=== PATIENT | female | born 1950 | race Caucasian/White ===

== ENCOUNTER 2018-03-12 02:35 | Outpatient (CLI) | payer MEDICARE, SELFPAY ==
[2018-03-12 08:47] LABS: HCT 37.2 % (36.0-46.0); HGB 12.7 g/dL (12.0-15.5); Mean Corp. HGB Concentration 34.1 g/dL (32.0-36.0); Mean Corpuscular Hemoglobin 29.5 pg (27.0-33.0); Mean Corpuscular Volume 86.3 fL (80-95); Mean Platelet Volume 10.3 fL (8.0-11.0); Platelet Count 185 x1000/uL (130-400); RBC 4.31 m/cumm (4.00-5.20); RBC Distribution Width 12.7 % (11.7-14.6); White Blood Cell Count 4.39 k/cumm (4.4-10.8)
[2018-03-12 10:26] LABS: ALT 33 U/L (12-78); AST 14 U/L (15-37); Albumin 3.6 g/dL (3.4-5.0); Alkaline Phosphatase 77 U/L (46-116); Anion Gap 10.4 mmol/L (3-11); BUN 13 mg/dL (7-18); Bilirubin, Total 0.6 mg/dL (0.2-1.0); CO2 28.6 mmol/L (21.0-32.0); CREATININE 0.97 mg/dL (0.55-1.02); Calcium 8.6 mg/dL (8.5-10.1); Chloride 106 mmol/L (98-107); Cholesterol 212 mg/dL (50-200); Estimated GFR 57.64 (mL/min/1.73m2); Glucose 95 mg/dL (70-100); HDL Cholesterol 58 mg/dL (40-60); LDL CHOLESTEROL 129 mg/dL (<100); Potassium 3.9 mmol/L (3.5-5.1); Sodium 145 mmol/L (136-145); Total Protein 6.7 g/dL (6.4-8.2); Triglyceride 186 mg/dL (30-150)
== END 2018-03-12 02:55 ==
PROVIDERS: PCP Family Medicine; Visit Provider Family Medicine
DX: E78.5 Hyperlipidemia, unspecified (principal); I10 Essential (primary) hypertension
CPT/HCPCS: 36415; 80053; 80061; 83721; 85027

== ENCOUNTER 2018-08-05 00:55 | Outpatient (CLI) | payer MEDICARE, OTHER, SELFPAY ==
--- NOTE | 2018-08-05 07:39 | DI.MRI_ITS ---
SYMPTOM/DIAGNOSIS: TIA, LT SIDED WEAKNESS, R53.1, G45.9 MRI BRAIN: Routine noncontrast examination was performed. The ventricles and sulci are consistent with the patient's age. There are areas of hyperintense signal in the white matter on T2 and Flair images most suggestive of small vessel ischemic disease. The diffusion weighted images have a normal appearance, No evidence of an acute infarct are seen. No intracranial hemorrhage is present. The ventricles are intact. The basilar cisterns are patent. There is no acute midline shift or mass effect. There is a normal flow void seen in the [place]. The pituitary gland appears grossly unremarkable. The visualized paranasal sinuses are clear. IMPRESSION: No evidence of an acute infarct. Age appropriate cerebral atrophy and small vessel ischemic disease.
--- NOTE | 2018-08-05 14:30 | DI.MAMMO_ITS ---
SYMPTOM/DIAGNOSIS: SCREENING, Z12.31 MAMMOGRAMS: Mammograms were interpreted according to the usual protocol including computer analysis with CAD system, tomosynthesis and C view imaging. Comparison is made with prior examinations. Breast density, Category B. No suspicious masses or microcalcifications are seen. There is no definite evidence of malignancy. IMPRESSION: Negative mammogram. Routine screening is recommended. Category 1. MQSA ASSESSMENT OF FINDINGS: Negative. Category 1. Patient will receive a letter notifying them of these results. BI-RADS category B. There are scattered areas of fibroglandular density.
== END 2018-08-05 01:15 ==
PROVIDERS: PCP Family Medicine; Visit Provider Family Medicine
DX: Z12.31 Encounter for screening mammogram for malignant neoplasm of breast (principal); G31.1 Senile degeneration of brain, not elsewhere classified; I67.82 Cerebral ischemia; G45.9 Transient cerebral ischemic attack, unspecified
CPT/HCPCS: 77063; 77067; 70551

== ENCOUNTER 2018-08-06 03:03 | Outpatient (CLI) | payer MEDICARE, OTHER, SELFPAY ==
--- NOTE | 2018-08-26 07:35 | ZIOP_ITS ---
[employer] MA[employer]GER REPORT DATE OF DICTATION August 24, 2018 INDICATION Transient cerebral ischemic event. PRESCRIBING CLINICIAN Twyla Pittman M.D. ENROLLMENT 08/06/2018 - 08/19/2018 FINDINGS 1. Baseline sinus rhythm, 44-104 beats per minute, average 60 beats per minute. 2. Rare PAC, less than 1%, 11 atrial runs, fastest 8 beats at 164 beats per minute, longest 12 beats at 116 beats per minute, no AF. 3. No ventricular ectopy. 4. No pauses. 5. 3 triggered events, sinus rhythm/sinus bradycardia, 58-69 beats per minute, 1 PAC. 6. No symptoms recorded. Tl Peoples M.D. ANKUSH/feng CPT 0298T T - 08/26/2018
== END 2018-08-06 03:23 ==
PROVIDERS: PCP Family Medicine; Visit Provider Family Medicine
DX: G45.9 Transient cerebral ischemic attack, unspecified (principal); I49.1 Atrial premature depolarization
CPT/HCPCS: 93225

== ENCOUNTER 2018-08-22 00:46 | Outpatient (CLI) | payer MEDICARE, OTHER, SELFPAY ==
--- NOTE | 2018-08-22 13:02 | DI.US_ITS ---
SYMPTOMS/DIAGNOSIS: TRANSIENT TRANSIENT ISCHEMIC ATTACK, G45.9, LEFT-SIDED WEAKNESS, R53.1 CAROTID ULTRASOUND: There are small foci of calcification in the common carotid bulbs. The velocity measurements obtained are within the normal range bilaterally in the internal carotid arteries. The vertebral arteries show antegrade flow. IMPRESSION: Small foci of calcific plaque in the common carotid bulbs. No significant internal carotid artery stenosis.
== END 2018-08-22 01:06 ==
PROVIDERS: PCP Family Medicine; Visit Provider Family Medicine
DX: G45.9 Transient cerebral ischemic attack, unspecified (principal); R53.1 Weakness; I65.23 Occlusion and stenosis of bilateral carotid arteries
CPT/HCPCS: 93880

== ENCOUNTER 2018-08-24 21:27 | Outpatient (CLI) | payer MEDICARE, OTHER, SELFPAY | END 2018-08-24 21:47 | PROVIDERS: PCP Family Medicine; Referring Provider Family Medicine; Visit Provider Internal Medicine Cardiovascular Disease | DX: G45.9 Transient cerebral ischemic attack, unspecified (principal); I49.1 Atrial premature depolarization | CPT/HCPCS: 0298T ==

== ENCOUNTER 2019-03-18 02:20 | Outpatient (CLI) | payer MEDICARE, OTHER, SELFPAY ==
[2019-03-18 09:31] LABS: ALT 33 U/L (14-59); AST 14 U/L (15-37); Albumin 3.8 g/dL (3.4-5.0); Alkaline Phosphatase 76 U/L (46-116); Anion Gap 10.8 mmol/L (3-11); BUN 13 mg/dL (7-18); Bilirubin, Total 0.6 mg/dL (0.2-1.0); CO2 27.2 mmol/L (21.0-32.0); CREATININE 0.95 mg/dL (0.55-1.02); Calcium 8.9 mg/dL (8.5-10.1); Calculated LDL 103 mg/dL; Chloride 105 mmol/L (98-107); Cholesterol 190 mg/dL (50-200); Estimated GFR 58.85 (mL/min/1.73m2); Glucose 94 mg/dL (70-100); HDL Cholesterol 60 mg/dL (40-60); Potassium 3.9 mmol/L (3.5-5.1); Sodium 143 mmol/L (136-145); Total Protein 6.9 g/dL (6.4-8.2); Triglyceride 138 mg/dL (30-150)
== END 2019-03-18 02:40 ==
PROVIDERS: PCP Family Medicine; Visit Provider Family Medicine
DX: I10 Essential (primary) hypertension (principal)
CPT/HCPCS: 36415; 80053; 80061

== ENCOUNTER 2019-08-06 01:19 | Outpatient (CLI) | payer MEDICARE, OTHER, SELFPAY ==
--- NOTE | 2019-08-06 10:43 | DI.MAMMO_ITS ---
EXAM: MAMMO SCREENING CLINICAL HISTORY: screening Z12.31. TECHNIQUE: Full field digital CC and MLO mammographic images were obtained with 3D tomosynthesis and utilizing computer aided detection (CAD). COMPARISON: . 2009 through 2018. FINDINGS: Breast Density - Category B - Scattered areas of fibroglandular density Left breast: Masses/Architectural Distortion: None seen. Microcalcifications: No suspicious pleomorphic-type calcifications are seen. Skin Thickening/Nipple Retraction: None. Axilla: Unremarkable. Right breast: A new area of nodular is seen the posterior central right breast. Spot compression vie ws and ultrasound are requested for further evaluation. No suspicious calcifications are seen. IMPRESSION: 1. Left breast: BI-RADS category 1, negative. No significant interval change with no specific featur es of malignancy noted. 2. Right breast: BI-RADS Cat 0 - Assessment Incomplete: Need additional imaging evaluation A negative radiographic report should not delay biopsy if a dominant or clinically suspicious mass is present. Up to ten percent of cancers are not identified on mammography. A negative report may reinforce clinical impression. Adenosis and dense breasts may obscure an underlying neoplasm. False positive reports average 6 to 10%. Patient will receive a letter notifying them of these results.
== END 2019-08-06 01:39 ==
PROVIDERS: PCP Family Medicine; Visit Provider Family Medicine
DX: Z12.31 Encounter for screening mammogram for malignant neoplasm of breast (principal); R92.8 Other abnormal and inconclusive findings on diagnostic imaging of breast
CPT/HCPCS: 77063; 77067

== ENCOUNTER 2019-10-09 00:59 | Outpatient (CLI) | payer MEDICARE, OTHER, SELFPAY ==
--- NOTE | 2019-10-09 | DI.MAMMO_ITS ---
EXAM: US BREAST RT LIMITED AND RIGHT BREAST ADDITIONAL VIEWS CLINICAL HISTORY: F/U MAMMO, NEW AREA RT BREAST NODULARITY TECHNIQUE: Spot compression views with tomography and CC and MLO projections. Ultrasound right janae st performed using standard protocol. COMPARISON: 2009 through 2019 FINDINGS: Additional views of the right breast: No persistent abnormality is identified. The findings are cons istent with overlying fibroglandular tissue. There has been no change when compared with exams back to 2010. Right breast ultrasound: No solid or cystic masses, hypoechoic foci, areas of abnormal shadowing, or areas of skin thickening. IMPRESSION: No mammographic or sonographically suspicious findings. ACR BI-RAD Category- 1 Negative. Bilateral screening mammography is recommended in 1 year. Breast Density - Category B - Scattered areas of fibroglandular density DATA REPOSITORY:
== END 2019-10-09 01:19 ==
PROVIDERS: PCP Family Medicine; Visit Provider Family Medicine
DX: Z12.31 Encounter for screening mammogram for malignant neoplasm of breast (principal); R92.8 Other abnormal and inconclusive findings on diagnostic imaging of breast; N64.59 Other signs and symptoms in breast
CPT/HCPCS: 76642; 77063; 77067

== ENCOUNTER 2020-03-17 02:47 | Outpatient (CLI) | payer MEDICARE, OTHER, SELFPAY ==
[2020-03-17 08:13] LABS: HCT 38.3 % (36.0-46.0); HGB 12.6 g/dL (11.2-15.7); MCH 28.6 pg (27.0-33.0); MCHC 32.9 % (32.0-36.0); MCV 86.8 fL (80-95); MPV 10.1 fL (8.0-11.0); Platelet Count 204 10^3/uL (130-400); RBC 4.41 10^6/uL (3.93-5.22); RDW 12.5 % (11.7-14.6); RDW-SD 39.7 fL; WBC 3.95 10^3/uL (4.4-10.8)
[2020-03-17 08:42] LABS: ALT 23 U/L (14-59); AST 18 U/L (15-37); Albumin 3.8 g/dL (3.4-5.0); Alkaline Phosphatase 73 U/L (46-116); Anion Gap 7.4 mmol/L (3-11); BUN 18 mg/dL (7-18); Bilirubin, Total 0.7 mg/dL (0.2-1.0); CO2 29.6 mmol/L (21.0-32.0); CREATININE 0.89 mg/dL (0.55-1.02); Calcium 8.9 mg/dL (8.5-10.1); Calculated LDL 96 mg/dL (<100); Chloride 105 mmol/L (98-107); Cholesterol 180 mg/dL (<200); Glucose 99 mg/dL (74-106); HDL Cholesterol 64 mg/dL (40-60); Potassium 3.9 mmol/L (3.5-5.1); Sodium 142 mmol/L (136-145); Total Protein 6.7 g/dL (6.4-8.2); Triglyceride 100 mg/dL (<150)
== END 2020-03-17 03:07 ==
PROVIDERS: PCP Family Medicine; Visit Provider Family Medicine
DX: E78.5 Hyperlipidemia, unspecified (principal); I10 Essential (primary) hypertension
CPT/HCPCS: 36415; 80053; 80061; 85027

== ENCOUNTER 2020-11-03 02:14 | Outpatient (CLI) | payer MEDICARE, OTHER, SELFPAY ==
--- NOTE | 2020-11-03 13:10 | DI.MAMMO_ITS ---
Exam(s) MAMMO SCREENING EXAM: MAMMO SCREENING CLINICAL HISTORY: screening,Z12.39. TECHNIQUE: Bilateral full field digital CC and MLO mammographic images were obtained with 3D tomosyn thesis and utilizing computer aided detection (CAD). COMPARISON: Prior mammograms dating back to 2010, the most recent being July 2019 . Diagnostic mammogram and ultrasound performed September 2019 were also reviewed. FINDINGS: Small nodular denser in the upper-outer quadrant left breast is unchanged from all prior studies and most probably a benign lymph node Asymmetric density medially in left breast is also unchanged from prior studies. In the right breast on CC view there is again noted a subtle nodular density located approximately 9 cm in from the nipple, again more evident on prior studies. This underwent spot-compression view and and prior ultrasound in September 2019. I feel this area should undergo repeat dedicated imaging. Ther e are no malignant-appearing microcalcification groups in this region or elsewhere in either breast There is no significant architectural distortion nor skin thickening-retraction. IMPRESSION: 1. No radiographic evidence of malignancy in left breast 2. Right breast finding asymmetric density-possible nodule as described above. Spot compression view and complete right breast ultrasound recommended. BI-RADS Category 0 - Assessment Incomplete: Need additional imaging evaluation Breast Density - Category B - Scattered areas of fibroglandular density Breast density Category C or D implies that the patient has dense breast tissue. Dense breast tissue can make it harder to find cancer on a mammogram. Dense breast tissue is also associated with an incr eased risk of breast cancer. This information about the result of the mammogram report was provided to the patient to raise their awareness. Use this report when you speak with the patient about their risks for breast cancer, which includes their family history. At that time, you may recommend additional screening tests (Ultrasoun d or MRI) as these tests may add significant information. A negative radiographic report should not delay biopsy if a dominant or clinically suspicious mass is present. Up to ten percent of cancers are not identified on mammography. A negative report may reinforce clinical impression. Adenosis and dense breasts may obscure an underlying neoplasm. False positive reports average 6 to 10%. Patient will receive a letter notifying them of these results.
--- NOTE | 2020-11-03 13:36 | DI.DEXA_ITS ---
Exam(s) XR DEXA BONE DENSITY W/WO MINAL EXAM: XR DEXA BONE DENSITY W/WO MINAL CLINICAL HISTORY: SCREENING FOR OSTEOPOROSIS IN POSTMENOPAUSAL WOMAN,Z78.0 TECHNIQUE: Routine DEXA evaluation of the lumbar spine, hip, or forearm. COMPARISON: No exams were available for comparison FINDINGS: Performed on a Hologic unit. Lateral image: No compression fracture evident. Lumbar Spine total T-score: 1.7 Hip total T-score:-0.4. Independent reading at the femoral neck yields a T-score of -0.7 Forearm total T-score: -0.3 IMPRESSION: Bone mineral density measures in the normal range. Fracture risk is low. Note: Any spine fracture indicates 5x risk for subsequent spine fracture and 2x risk for subsequent h ip fracture. World Health Organization criteria for BMD interpretation classify patients: Normal...... T- Score at or above -1.0 Osteopenic... T- Score between -1.0 and -2.5 Osteoporosis... T-Score at or below -2.5
== END 2020-11-03 02:34 ==
PROVIDERS: PCP Family Medicine; Visit Provider Physician Assistant
DX: Z12.31 Encounter for screening mammogram for malignant neoplasm of breast (principal); R92.8 Other abnormal and inconclusive findings on diagnostic imaging of breast; Z13.820 Encounter for screening for osteoporosis; Z78.0 Asymptomatic menopausal state
CPT/HCPCS: 77063; 77067; 77080

== ENCOUNTER 2020-11-16 02:18 | Outpatient (CLI) | payer MEDICARE, OTHER, SELFPAY ==
--- NOTE | 2020-11-16 | DI.US_ITS ---
Exam(s) MG MAMMO SCREEN CALL BACK UNI US BREAST RT COMPLETE EXAM: US BREAST RT COMPLETE CLINICAL HISTORY: FU MAMMO ASYMMETRIC DENSITY POSSIBLE NODULE. TECHNIQUE: Craniocaudal and mediolateral oblique Full Field Digital Mammography views of the breast with Computer Aided Diagnosis followed by Tomosynthesis and breast ultrasound. COMPARISON: MG Screening Bilat Mammo from 06/01/2015 MG Screening Bilat Mammo from 07/04/2016 MG Screening Bilat Mammo from 07/04/2016 MG MG mammo screening from 08/05/2018 MG MG MAMMO SCREEN CALL BACK UNI from 10/09/2019 MG MG MAMMO SCREEN CALL BACK UNI from 10/09/2019 MG MG MAMMO SCREENING from 11/03/2020 FINDINGS: Mammography/Tomosynthesis: Masses/Architectural Distortion: None seen. Microcalcifictions: No suspicious pleomorphic-type are seen. Skin Thickening/Nipple Retraction: None. Breast US: Echotexture: Normal appearance of the glandular tissue. Shadowing: No suspicious foci. Cyst: None. Solid lesions: None seen. Ductal dilation: None. IMPRESSION: 1. No evidence of malignancy is noted. 2. Unless there is more urgent need, follow-up screening mammography is recommended, as per [place] [employer] guidelines. BI-RADS Category 1 - Negative Breast Density - Category B - Scattered areas of fibroglandular density A negative radiographic report should not delay biopsy if a dominant or clinically suspicious mass is present. Up to ten percent of cancers are not identified on mammography. A negative report may reinforce clinical impression. Adenosis and dense breasts may obscure an underlying neoplasm. False positive reports average 6 to 10%. Patient will receive a letter notifying them of these results.
== END 2020-11-16 02:38 ==
PROVIDERS: PCP Nurse Practitioner Family; Visit Provider Physician Assistant
DX: Z12.31 Encounter for screening mammogram for malignant neoplasm of breast (principal); R92.8 Other abnormal and inconclusive findings on diagnostic imaging of breast; N64.59 Other signs and symptoms in breast
CPT/HCPCS: 76642; 77063; 77067

== ENCOUNTER 2022-04-27 03:09 | Outpatient (CLI) | payer MEDICARE, SELFPAY ==
[2022-04-27 12:37] LABS: CREATININE 0.9 mg/dL (0.55-1.02); Calculated LDL 173 mg/dL (<100); Cholesterol 276 mg/dL (<200); HDL Cholesterol 71 mg/dL (40-60); Potassium 3.6 mmol/L (3.5-5.1); Triglyceride 164 mg/dL (<150)
== END 2022-04-27 03:10 | disposition home or self-care (01) ==
LOC: LOS 03:09
PROVIDERS: PCP Nurse Practitioner Family; Visit Provider Nurse Practitioner Family
DX: E78.5 Hyperlipidemia, unspecified (principal); I10 Essential (primary) hypertension
CPT/HCPCS: 80061; 82565; 84132

== ENCOUNTER 2022-07-26 12:14 | Outpatient (CLI) | payer MEDICARE, SELFPAY ==
--- NOTE | 2022-07-26 11:15 | DI.RAD_ITS ---
Exam(s) XR HAND LT COMPLETE EXAM: XR HAND LT COMPLETE CLINICAL HISTORY: swollen/painful after heavy lifting with it. M79.642 PAIN LEFT HAND. TECHNIQUE: 2D digital imaging was performed. Three views. COMPARISON: No exams were available for comparison FINDINGS: BONES: No acute fracture is present. No bony destructive lesion is seen. JOINTS: No dislocation present. Degenerative changes are noted at the 1st carpal metacarpal joint wit h joint space narrowing and prominent spurring. Degenerative changes are also noted in the interphal angeal joints of the fingers. SOFT TISSUE: Normal. IMPRESSION: Degenerative changes. No acute abnormality. DATA REPOSITORY: RADIATION DOSE DELIVERED:
== END 2022-07-26 12:34 ==
PROVIDERS: PCP Nurse Practitioner Family; Visit Provider Nurse Practitioner Family
DX: M79.642 Pain in left hand (principal); M79.89 Other specified soft tissue disorders; M18.12 Unilateral primary osteoarthritis of first carpometacarpal joint, left hand; M19.042 Primary osteoarthritis, left hand
CPT/HCPCS: 73130

== ENCOUNTER 2022-12-06 02:48 | Outpatient (CLI) | payer MEDICARE, SELFPAY ==
--- NOTE | 2022-12-06 07:15 | DI.MAMMO_ITS ---
Exam(s) MAMMO SCREENING EXAM: MAMMO SCREENING CLINICAL HISTORY: SCREENING, Z12.39. TECHNIQUE: Bilateral full field digital CC and MLO mammographic images were obtained with 3D tomosyn thesis and utilizing computer aided detection (CAD). COMPARISON: Prior mammograms dating back to 2013 were reviewed. FINDINGS: In the left breast there is an 8 x 8 mm nodule seen medial of center, located approximately 8 cm in n ipple on the CC view. Spot compression view and ultrasound recommended. Another smaller benign-appear ing nodule seen laterally in left breast is unchanged from all prior mammograms. In the right breast there is again noted a subtle asymmetric density-possible nodule measuring 6 x 6 mm, located 9 cm in from the nipple on the CC view, slightly lateral of center. Spot compression view and ultrasound recommended. In addition in the right breast on the MLO view there is a suggestion of a possible 1.8 x 1.7 cm nodu lar density located 6 cm in from the nipple on the MLO view There are no malignant-appearing microcalcification groups in either breast. There is no significant architectural distortion nor skin thickening-retraction. IMPRESSION: Bilateral nodular densities as described above. Spot compression views of both breasts as well as lamont ateral complete breast ultrasound recommended. BI-RADS Category 0 - Assessment Incomplete: Need additional imaging evaluation Breast Density - Category C - Heterogeneously dense Breast density Category C or D implies that the patient has dense breast tissue. Dense breast tissue can make it harder to find cancer on a mammogram. Dense breast tissue is also associated with an incr eased risk of breast cancer. This information about the result of the mammogram report was provided to the patient to raise their awareness. Use this report when you speak with the patient about their risks for breast cancer, which includes their family history. At that time, you may recommend additional screening tests (Ultrasoun d or MRI) as these tests may add significant information. A negative radiographic report should not delay biopsy if a dominant or clinically suspicious mass is present. Up to ten percent of cancers are not identified on mammography. A negative report may reinforce clinical impression. Adenosis and dense breasts may obscure an underlying neoplasm. False positive reports average 6 to 10%. Patient will receive a letter notifying them of these results.
== END 2022-12-06 03:08 ==
LOC: DI 02:48
PROVIDERS: PCP Nurse Practitioner Family; Visit Provider Nurse Practitioner Family
DX: Z12.31 Encounter for screening mammogram for malignant neoplasm of breast (principal); R92.8 Other abnormal and inconclusive findings on diagnostic imaging of breast
CPT/HCPCS: 77063; 77067

== ENCOUNTER 2022-12-06 03:40 | Outpatient (CLI) | payer MEDICARE, SELFPAY ==
[2022-12-06 12:56] LABS: Calculated LDL 159 mg/dL (<100); Cholesterol 249 mg/dL (<200); HDL Cholesterol 64 mg/dL (40-60); Triglyceride 134 mg/dL (<150)
== END 2022-12-06 03:41 | disposition home or self-care (01) ==
LOC: LOS 03:40
PROVIDERS: PCP Nurse Practitioner Family; Visit Provider Nurse Practitioner Family
DX: E78.5 Hyperlipidemia, unspecified (principal)
CPT/HCPCS: 36415; 80061

== ENCOUNTER 2022-12-14 01:30 | Outpatient (CLI) | payer MEDICARE, SELFPAY ==
--- NOTE | 2022-12-14 | DI.MAMMO_ITS ---
Exam(s) US BREAST RT COMPLETE MG MAMMO SCREEN CALL BACK BI EXAM: MG MAMMO SCREEN CALL BACK BI CLINICAL HISTORY: BILAT NODULAR DENSITIES R92.8 ABNL MAMMO. TECHNIQUE: Spot compression digital Mammography views of the bothbreasts with Tomosynthesis followe d by bilateral breast ultrasound. COMPARISON: US US BREAST RT COMPLETE from 12/14/2022 FINDINGS: RIGHT BREAST: Mammography/Tomosynthesis: Masses/Architectural Distortion: Area of increased and masslike density in the lateral breast measuri ng roughly 15 by 22 by 16 millimeters. There is suggestion of spiculation is well as architectural d istortion. A posterior area of asymmetric density seen on the CC view does not have a suspicious brock earance. Microcalcifictions: No suspicious pleomorphic-type are seen. Skin Thickening/Nipple Retraction: None. Right breast US: Shadowing: No suspicious foci. Cyst: None. Solid lesions: 2.3 x 1.3 x 1.6 centimeter solid mildly hypoechoic mass in the 9 o'clock position 4 cm from the nipple which shows vascularity. No additional masses identified. Ductal dilation: None. A 1.8 centimeter right axillary lymph node is identified which has a normal appearance. LEFT BREAST: Mammography/Tomosynthesis: Masses/Architectural Distortion: Area of nodularity in the medial left breast has been seen on prior mammograms back to 2012. Microcalcifictions: No suspicious pleomorphic-type are seen. Skin Thickening/Nipple Retraction: None. IMPRESSION: 1. Right breast: Suspicious 2.3 cm mass in the lateral right breast. Biopsy recommended. 2. Left breast: No evidence of malignancy is noted. 3. The findings were discussed with the patient on the date of the examination. 4. Findings discussed with Raul Zhou, referring provider. BI-RADS Category 5 - Highly Suggestive of Malignancy: Biopsy recommended Breast Density - Category B - Scattered areas of fibroglandular density A negative radiographic report should not delay biopsy if a dominant or clinically suspicious mass is present. Up to ten percent of cancers are not identified on mammography. A negative report may reinforce clinical impression. Adenosis and dense breasts may obscure an underlying neoplasm. False positive reports average 6 to 10%. Patient will receive a letter notifying them of these results.
== END 2022-12-14 01:50 ==
LOC: DI 01:31
PROVIDERS: PCP Nurse Practitioner Family; Visit Provider Nurse Practitioner Family
DX: Z12.31 Encounter for screening mammogram for malignant neoplasm of breast (principal); N63.13 Unspecified lump in the right breast, lower outer quadrant
CPT/HCPCS: 76642; 77063; 77067

== ENCOUNTER 2022-12-27 01:45 | Outpatient (CLI) | payer MEDICARE, SELFPAY ==
--- NOTE | 2022-12-27 12:45 | DI.US_ITS ---
Exam(s) US NEEDLE LOCAL BREAST WO RAD EXAM: US NEEDLE LOCAL BREAST WO RAD CLINICAL HISTORY: RT BREAST MASS TECHNIQUE: Ultrasound was provided for Dr. Reagan for guidance with performing breast biopsy. COMPARISON: US US BREAST RT COMPLETE from 12/14/2022 MG MG MAMMO SCREEN CALL BACK BI from 12/14/2022 FINDINGS: Hard copy images show the previously noted right breast mass in the 10 o'clock position. Further reba ges show a needle entering the mass. Please see procedure note for details. DATA REPOSITORY:
--- NOTE | 2022-12-27 13:08 | BREAST_PTH ---
PATIENT: Jane Moreland LOC: [facility] U#:[id number] AGE/SX: 72/F ROOM: RE12/27/[address]: Carmen Reagan MD : [id number] BED: DIS: 12/27/2022 SPEC #: [id number] RECD: 12/28/22 12:39 STATUS: GRANT REQ #: [id number] JIMMY: 12/27/22 13:[address]: Carmen Reagan DEPT: Surgical Specimen RECD BY: Alyse Nunez ENTERED: 12/28/22 12:40 SP TYPE: Breast OTHR DR: Raul Zhou, LESIA Tissues: 1 - BREAST BX NEEDLE Procedures: GROSS AND MICRO LEVEL 4 [id number] IPEX ESTROGEN/PROGESTERONE RECEPTOR IPEX STAIN Comments: [id number]
--- NOTE | 2022-12-28 10:45 | W.PROCNOTE ---
Date of service: 12/27/22 Time of Service: 13:00 Procedure Note Date of procedure: 12/27/22 Procedure: US guided Breast Biopsy Right Breast Surgeon/Proceduralist/Physician: Carmen Reagan Procedure Diagnosis: Right Breast mass, Family Hx of Breast Cancer Procedure Indications: I saw Mrs Moreland in the radiology department prior to her ultrasound-guided biopsy. She is a very pleasant 72-year-old female who went for her routine mammogram and was found to have an abnormality. Ultrasound was done on the same day which showed a suspicious mass in her right breast at around the 10 o'clock position 3 cm from the nipple. She does not feel a mass. She has not noted any nipple discharge or changes in the skin of her breast. She does have a family history of breast cancer in her sister who just from a second bout of breast cancer. She does not think that her sister was ever tested for a genetic marker. The patient has 2 sons and a daughter. I explained the procedure to the patient in detail. We reviewed the risks, benefits and complications. Complications include but are not limited to bleeding, infection, injury to muscle. There is risk of missing or not getting enough tissue for diagnosis and needing to repeat the procedure. I answered her questions to her satisfaction. She seemed to have a good understanding of the procedure as well as the complications and wished to proceed. Procedure Description: Pre-op Dx: Right Breast Mass Post-op Dx: same Procedure: US guided Right Breast Core needle biopsy Surgeon: Joanie Reagan MD Anesthesia: Local anesthesia with 1% Lidocaine Blood loss: 2 cc Specimen: Core needle biopsy x3 Complications: no immediate complications Procedure: After informed consent was obtained the patient was placed in a supine position. US was done of the Breast and the lesion was localized by the US tech. The skin was cleaned with chlorhexedine and infiltrated with the above local anesthetic. An incision was made with an 11 blade. Using a 14 gauge core needle 3 specimens were removed under direct visualization with the US and placed on telfa and placed in formalin. A small clip was then placed into the lesion under direct visualization with the US. The skin was cleaned and dried and a band aid was applied. A cold pack was placed over the area. The patient tolerated the procedure well and there were no immediate complications.
== END 2022-12-27 02:05 ==
LOC: DI 01:46
PROVIDERS: PCP Nurse Practitioner Family; Visit Provider Surgery
DX: C50.411 Malignant neoplasm of upper-outer quadrant of right female breast
CPT/HCPCS: 88305; 88360; 76942

== ENCOUNTER → 2023-01-16 13:18 | Outpatient (BNVA) | payer MEDICARE, SELFPAY | PROVIDERS: PCP Nurse Practitioner Family; Referring Provider Nurse Practitioner Family; Visit Provider Surgery | DX: C50.911 Malignant neoplasm of unspecified site of right female breast (principal) | CPT/HCPCS: 99213 ==

== ENCOUNTER 2023-01-24 06:32 | Day surgery (SDC) | payer MEDICARE, SELFPAY ==
[2023-01-24] VITALS (17 sets, daily range): BP systolic 114–186; BP diastolic 47–84; PULSE 47–64; RESP 12–20; TEMP 36.1–36.8; O2SAT 94–99; BMI 30.4
--- NOTE | 2023-01-24 | DI.US_ITS ---
Exam(s) US NEEDLE LOCAL BREAST WO RAD EXAM: US NEEDLE LOCAL BREAST WO RAD CLINICAL HISTORY: Breast mass- needle loc in OR. Right Breast. Left Breast. TECHNIQUE: Ultrasound guidance was provided for preoperative localization wire into the nodule lenny rn at 10 o'clock position of the right breast. This procedure was performed by the breast surgeon. Radiologist was not present for this procedure. COMPARISON: US US NEEDLE LOCAL BREAST WO RAD from 12/27/2022 FINDINGS: Preop needle wire localization of right breast 10 o'clock position nodule. IMPRESSION: As above.
--- NOTE | 2023-01-24 07:00 | DI.NM_ITS ---
Exam(s) NM SENTNODE INJ ONLY EXAM: NM SENTNODE INJ ONLY CLINICAL HISTORY: Right Breast Cancer, invasive ductal carcinoma rt breast, C50.911. TECHNIQUE: Injected Dose: 1 mCi Tc-99m filtered sulfur colloid injected subcutaneously in the right breast by Dr. Reagan Images: No images. COMPARISON: MG MG MAMMO SPECIMEN from 01/24/2023 FINDINGS: Please see procedure note for details. DATA REPOSITORY:
--- NOTE | 2023-01-24 07:14 | PGE_ITS ---
Date of Service Date of service: 01/24/23 Time of Service: 07:14 Assessment and Plan Assessment and plan (1) Invasive ductal carcinoma of right breast in female: Status: Acute Assessment and plan: After discussing her options she would like to proceed with a partial mastectomy on the right with sentinel lymph node biopsy.? Risks, benefits and complications were reviewed with the patient.? Complications include but are not limited to bleeding, seroma, hematoma, wound dehiscence, infection, injury to nerves in the axilla, lymphedema, need for further surgery if margins are close or positive.? Patient seemed to have a good understanding of the procedure and its complications.? Her questions were entertained and answered to her satisfaction and she wished to proceed.? No guarantees were given or implied. Proceed with ultrasound localized right breast lumpectomy with sentinel lymph node biopsy. Subjective Subjective Interval history since last seen: From H&P: Jane is here to discuss her pathology results from the breast biopsy that I did as well as surgery.? Jane underwent a mammogram which showed a suspicious lesion.? 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 It is estrogen progesterone positive and HER2/kanika negative.? I reviewed the pathology result with Jane today.? We reviewed the different types of cancers as well as the different surgical procedures.? She had minimal bruising after the biopsy.? She does have a family history of breast cancer in her system Shelly who I took care of and unfortunately from breast cancer.? Shelly was the first first-degree relative to have breast cancer and therefore genetic testing was not done.? I did discuss with Jane that she should have genetic testing done as well to assist her children on making decisions and getting mammograms early. I saw Jane in same-day surgery prior to going over to radiology to have the radioactive dye injected into her right breast. Jane is doing okay. She has not had any new issues since I saw her in the office. We discussed surgery again in detail today and she is still comfortable proceeding with a lumpectomy and sentinel lymph node biopsy Exam Const General: cooperative, comfortable and no acute distress Nutritional Appearance: average body habitus Orientation: alert and oriented x3 [facility] Head: normocephalic and atraumatic Resp Effort & Inspection: normal respiratory effort Auscultation: clear to auscultation bilaterally Cardio Rate: regular rate Rhythm: regular rhythm Objective Last Vital Signs Temp 97.2 F L 01/24/23 06:55 Pulse 63 01/24/23 06:55 Resp 16 01/24/23 06:55 BP 186/76 H 01/24/23 06:55 Pulse Ox 98 01/24/23 06:55 Time Spent with Patient Time Spent with Patient: 25-34 minutes Time was spent: counseling the patient
[2023-01-24] MEDS: Acetaminophen 500 MG TAB 1000 MG PO (07:33)
[2023-01-24] MEDS: Gabapentin 300 MG CAP 600 MG PO (07:33)
[2023-01-24] MEDS: Celecoxib 200 MG CAP PO (07:33)
[2023-01-24] MEDS: Lactated Ringers 1,000 ML 80 ML IV (07:42)
--- NOTE | 2023-01-24 09:22 | ANES.PREOP_ITS ---
General Info Date of Service Date Performed: 01/24/23 Height: 5 ft 2 in Weight: 75.6 kg Body Mass Index (BMI): 30.4 Surgical Procedure: Operation Date: 01/24/23 13:55 Proposed Procedure Side Surgeon p Breast Lumpectomy Right Carmen Reagan MD s Axillary [place] Lymph Node Biopsy Right Carmen Reagan MD Meds Allergies and Home Medications Allergies Allergy/AdvReac Type Severity Reaction Status Date / Time Sulfa (Sulfonamide Allergy Unknown Verified 01/24/23 07:07 Antibiotics) lactose AdvReac Unknown GI UPSET Verified 01/24/23 07:07 lisinopril AdvReac Unknown COUGH Verified 01/24/23 07:07 Home Medication Medication Instructions Recorded aspirin 81 mg tablet,delayed 1 tab PO DAILY 09/30/12 release (Ecotrin Low Strength) turmeric root extract 1,053 mg 1,000 mg PO DAILY 11/07/21 tablet candesartan 16 mg tablet 16 mg PO DAILY #90 tabs 05/10/22 amlodipine 5 mg tablet 5 mg PO DAILY #90 tabs 07/12/22 red yeast rice 600 mg capsule 600 mg PO DAILY 07/26/22 hydrochlorothiazide 25 mg tablet 25 mg PO DAILY #90 tabs 08/04/22 zgwndho-urxgfwmou-dhadti-zinc 1 tab PO DAILY 11/13/22 tablet glucosamine-chondroitin 250 mg-200 1 tab PO DAILY 01/23/23 mg tablet (Osteo Bi-Flex) Current Visit Medications: Current Medications Generic Name Dose Route Start Last Admin Trade Name Freq PRN Reason Stop Dose Admin Acetaminophen 1,000 mg 01/24/23 06:00 01/24/23 07:33 Acetaminophen 500 Mg Tab PO 01/24/23 16:00 1,000 mg PREOP FEDERICO Administration Celecoxib 200 mg 01/24/23 06:00 01/24/23 07:33 Celecoxib 200 Mg Cap PO 01/24/23 16:00 200 mg PREOP FEDERICO Administration Gabapentin 600 mg 01/24/23 06:00 01/24/23 07:33 Gabapentin 300 Mg Cap PO 01/24/23 16:00 600 mg PREOP FEDERICO Administration Heparin Sodium (Porcine) 5,000 units 01/24/23 06:00 Heparin 5,000 Units/Ml Vial SC 01/24/23 16:00 PREOP FEDERICO Ringer's Solution 1,000 mls @ 80 mls/hr 01/24/23 06:00 01/24/23 07:42 IV 02/22/23 23:59 80 mls/hr INFUSION FEDERICO Administration Cefazolin Sodium/Dextrose 2 gm in 50 mls @ 100 mls/hr 01/24/23 06:00 Ancef Duplex IVPB 01/24/23 16:00 PREOP FEDERICO IV Miscellaneous Supplies 1 each 01/24/23 06:00 Iv Access IV 02/22/23 23:59 DIRECTED FEDERICO Sodium Chloride 0 ml 01/24/23 06:00 Normal Saline Flush 10 Ml Syr IV 02/22/23 23:59 PRN PRN Sodium Chloride 0 ml 01/24/23 06:00 Normal Saline 10 Ml Vial IJ 02/22/23 23:59 DIRECTED PRN Sterile Water 0 ml 01/24/23 06:00 Water,Injection,Sterile 10 Ml Vial IJ 02/22/23 23:59 DIRECTED PRN PFSH Active Problems Active Problems: Problem Status Onset Code Invasive ductal carcinoma of right breast in female C50.911 Breast mass, right N63.10 Left knee pain M25.562 Heart murmur R01.1 Hx of hypokalemia Z86.39 Pelvic organ prolapse quantification stage 3 cystocele N81.10 Left hip pain M25.552 TIA (transient ischemic attack) G45.9 Essential hypertension I10 Family hx-breast malignancy Z80.3 Hyperlipidemia E78.5 Obesity E66.9 Medical History Medical History HTN (hypertension) Obesity Surgical History Surgical History Colonoscopy - IV Sedation (01/30/17) Colonoscopy - MAC (~2005) N/L History of bilateral ligation of fallopian tubes Ligation of fallopian tube Tobacco Smoking/Tobacco Use Status: Never Passive smoking exposure: Yes Second hand exposure: Yes Alcohol Alcohol Intake: current Alcohol intake frequency: holidays/special occasions only Substance Use Substance use: Never Substance use type: does not use Vital Signs and Lab Results Vital Signs Most Recent Vital Signs in EMR: Most Recent Vital Signs Temp Pulse Resp BP Pulse Ox 36.2 C L 63 16 186/76 H 98 01/24/23 06:55 01/24/23 06:55 01/24/23 06:55 01/24/23 06:55 01/24/23 06:55 Lab Results Blood Type / Crossmatch: No Data to Display Complete Blood Count: No Data to Display Complete Metabolic Panel: No Data to Display Liver Function Panel: No Data to Display Coagulation Panel: No Data to Display Cardiac Panel: No Data to Display Arterial Blood Gas: No Data to Display Venous Blood Gas: No Data to Display Pancreas Panel: No Data to Display Thyroid Panel: No Data to Display Infectious Disease: No Data to Display Blood Cultures: No Data to Display Toxicology Panel: No Data to Display Imaging and Studies Imaging and Studies Study information below may be from another EMR and interpreted by another provider. Please see original notes in EMR for more complete details. Carotid Artery Summary:: Patient Name: JAJA CARRILLO #: [id number]: DI Ordering Provider: Kasie Coreas #: [id number]: [facility] Primary Care Provider: Aubree Coreas of Exam: 08/22/18Sex: F Admission Date: 08/22/18 : 1950 Age: 68 Exam(s) a US:US carotid SYMPTOMS/DIAGNOSIS: TRANSIENT TRANSIENT ISCHEMIC ATTACK, G45.9, LEFT-SIDED WEAKNESS, R53.1 CAROTID ULTRASOUND: There are small foci of calcification in the common carotid bulbs. The velocity measurements obtained are within the normal range bilaterally in the internal carotid arteries. The vertebral arteries show antegrade flow. IMPRESSION: Small foci of calcific plaque in the common carotid bulbs. No significant internal carotid artery stenosis. Ordered By: Hector Coreas CC: Dictated By: Kristie Meadows M.D. 08/22/18 1422 <Electronically signed by Kristie Meadows M.D.> 08/22/18 1442 Transcribed By: Gideon Dickson 08/22/18 1433 This is privileged, confidential information intended only for the provider name d. Any use or distribution by any person other than this provider is strictly prohibited. If you receive this report in error, please notify us immediately at [phone] and return the original report to us at the address above. Thank- you. Anesthesia Assessment and Plan Anesthesia History Personal History: No History of Anesthesia Complications Family History: No Family History of Anesthesia Complications Exercise Tolerance Exercise Tolerance: Metabolic Equivalents>4 Pertinent Negatives Pertinent Negatives: No Symptoms of GERD and No Major Pulmonary Symptoms or Complaints Cardiac & Pulmonary Exam Cardiac Exam: Heart Murmur Present (Patient denies, reports more of a flutter, regular radial pulse. Patient denies atrial fib/atrial flutter. Did note murmur on auscultation. ) Pulmonary Exam: Clear Bilateral Breath Sounds Implantable Cardiac Device Does patient have a Pacemaker or an ICD?: No Airway Exam Known Difficult Airway: No Mallampati Class: 3 Mouth Opening: Normal (> 3cm) Thyromental Distance: Greater than 3 cm Neck Range of Motion: Full ROM Neck Circumference: Normal Teeth Condition: Normal Dentition ASA Classification ASA Score: ASA 3 Emergency Case?: No NPO Status NPO Status: NPO Clears >2 hours, Solids >8 hours Anesthesia Plan Resuscitation Status: Full Code Anesthesia Technique: General Anesthesia Airway Planned: LMA Monitors Used: Standard Monitors
--- NOTE | 2023-01-24 09:30 | DI.MAMMO_ITS ---
Exam(s) MG MAMMO SPECIMEN EXAM: MAMMO SPECIMEN CLINICAL HISTORY: Right Breast Lumpectomy. TECHNIQUE: Specimen radiograph COMPARISON: Prior relevant mammograms and ultrasound were reviewed. FINDINGS: The specimen contains both the wire and the biopsy marker clip. One location the lesion margins are within 1 cm of the margin of the specimen, this being in the J 1 grade level. Impression:
[2023-01-24] MEDS: ceFAZolin 2 GM/50 ML BAG IVPB (10:18)
[2023-01-24] MEDS: Heparin 5,000 UNITS/ML VIAL 5000 UNITS SC (10:19)
[2023-01-24] MEDS: Bupivacaine 0.5% Pres-Free W/EPI 30 ML VIAL (10:46)
--- NOTE | 2023-01-24 10:52 | BREAST_PTH ---
PATIENT: Jane Moreland LOC: [facility] U#:[id number] AGE/SX: 72/F ROOM: RE01/24/[address]: Carmen Reagan MD : 1950 BED: DIS: 01/25/2023 SPEC #: [id number] RECD: 01/24/23 13:00 STATUS: GRANT REAce #: [id number] JIMMY: 01/24/23 10:[address]: Carmen Reagan DEPT: Surgical Specimen RECD BY: Carlyn Abel ENTERED: 01/25/23 13:07 SP TYPE: Breast OTHR DR: Raul Zhou, LESIA Tissues: 1 - BREAST INCISION/EXCISION 2 - BREAST INCISION/EXCISION Procedures: GROSS AND MICRO LEVEL 5 Comments: [id number] (ALL SPECIMENS RADIOACTIVE)
--- NOTE | 2023-01-24 12:02 | ROE_ITS ---
Date of service: 01/24/23 Time of Service: 12:15 Operative Note Operative Note DATE OF PROCEDURE: 01/24/23 PRE-OP DIAGNOSIS: Right Breast Cancer POST-OP DIAGNOSIS: same PROCEDURE: 1. Injection of radioactive isotope in Radiology 2.Right partial mastectomy 3.Right axillary [place] lymph node biopsy SURGEON: Carmen Reagan EMERGENCY ROOM PHYSICIAN ASSISTANT: Jie Dickinson ANESTHESIA TYPE: Local By Surgeon and General LMA/ETT Refer to Anesthesia Record ESTIMATED BLOOD LOSS: 50 PATHOLOGY: other (Breast tissue and one sentinel lymph node) COMPLICATIONS: None Patient was transported to: PACU Patient's condition: stable Indications: Jane is a pleasant 72 year old female who was diagnosed with invasive ductal carcinoma of her right breast. After discussing her options she would like to proceed with a partial mastectomy on the right with sentinel lymph node biopsy.? Risks, benefits and complications were reviewed with the patient.? Complications include but are not limited to bleeding, seroma, hematoma, wound dehiscence, infection, injury to nerves in the axilla, lymphedema, need for further surgery if margins are close or positive.? Patient seemed to have a good understanding of the procedure and its complications.? Her questions were entertained and answered to her satisfaction and she wished to proceed.? No guarantees were given or implied. Proceed with ultrasound localized right breast lumpectomy with sentinel lymph node biopsy. Findings: Count prior to lymph node excision 950 [place] lymph node 840 count Background 150 after node removed Procedure Description: The patient was brought to same-day surgery at 7:30 in the morning. She was then taken to radiology and they radioactive isotope was injected into the dermis around her areola on the right side. The patient was then taken back to same-day surgery. 3 hours later, after informed consent was obtained from the patient, she was taken back to the operating room and placed in the supine position on the operating room table. The patient was then placed under General sedation with LMA. 2 cc of methylene blue was then injected into the dermis around the areola as well and the area was massaged for 1 minute. A timeout was done. The Breast was prepped with alcohol. Next with the assistance of the classification and treatment director a 10 cm wire was placed into the right breast lesion with the tip of the wire in the middle of the lesion itself. The injection site was then swept and the count was >10,000. A radioactive count was done of the axilla and was 950. The site was marked. Next the right chest wall, axilla and arm were all prepped and draped in a sterile surgical fashion. At this point a second timeout was done. The patient's name, date of , allergies to medications, procedure to be done, site of surgery and antibiotic prophylaxis were all reviewed. Fire risk was assessed. Next 0.5% bupivacaine with epi was injected into the dermisin the right axilla.dissection was done with cautery through the subcu tenuous tissue and the fascia. I then used the harpal counter to localize a hot lymph node. The lymph node was dissected with cautery. Once removed count was done which was 840. And another count of the background was done in the axilla which was at this point 150. No other hot lymph nodes were identified. There were no other palpable lymph nodes. The cavity was irrigated. No bleeding was noted. A Ray- Abel was placed into the cavity while I worked on the breast. Next at the 9 o'clock position local anesthetic was injected into the dermis and subcutaneous tissue. A 4 cm incision was made with a 15 blade. Dissection was done with cautery to the wire. The wire was grasped and pulled through the skin into the wound. Using cautery the tissue was dissected around the needle down to the pectoralis muscle. The dissection was taken down to the chest wall and dissected away from the fascia. Once the breast tissue was completely dissected it was marked with a single suture at 3 o'clock and a double suture at 6 o'clock. The specimen was then sent to radiology where a mammogram picture was taken. It showed the lesion. There was a close margin at the 3 o'clock position. More tissue was removed from this area and sutured to the previous specimen for orientation. The specimen was placed in formalin for pathology. The cavity was irrigated with some normal saline and dried. Small areas of bleeding were identified and these were stopped using cautery. The cavity was inspected again and no bleeding was noted. The cavity was sprayed with Floseal. Next the Ray-Abel was removed from the axillary wound. Both incisions were closed in two layers. The first layer re-approximated the subcutaneous tissue with 3-0 Vicryl. The skin was re-approximated with a running 4-0 Monocryl suture. The skin was cleaned and dried and Dermabond was applied to both incisions. A surgical Bra was the placed on the patient for compression. The patient was woken up, extubated and taken to PACU in stable condition. Sponge, instrument and needle counts were correct at the end of the case.
--- NOTE | 2023-01-24 12:35 | PDOC.DSDIS_ITS ---
Date of service: 01/24/23 Discharge Plan Disposition Patient Disposition: Home Condition: Stable Discharge Details Reason For Visit: Lumpectomy Attending Provider: Carmen Reagan Primary Care Provider: Raul Zhou Home Meds and New Rx's Prescriptions: New tramadol 50 mg tablet 50 mg PO Q6H PRNQty: 14 0RF Continued turmeric root extract 1,053 mg tablet 1,000 mg PO DAILY zbcjrze-efqyjrvfc-dwuypn-zinc Tablet 1 tab PO DAILY red yeast rice 600 mg capsule 600 mg PO DAILY Rx Instructions: give with meal/snack aspirin [Ecotrin Low Strength] 81 MG tablet,delayed release (DR/EC) 1 tab PO DAILY candesartan 16 mg tablet 16 mg PO DAILY Qty: 90 3RF amlodipine 5 mg tablet 5 mg PO DAILY Qty: 90 3RF hydrochlorothiazide 25 mg tablet 25 mg PO DAILY Qty: 90 3RF glucosamine-chondroitin [Osteo Bi-Flex] 250-200 mg Tablet 1 tab PO DAILY Discharge Instructions Instructions: Breast Lumpectomy (DC) Additional Instructions: Activity at Home after surgery: 1. Make sure you walk outside at least 4 times per day 2. You should be able to climb a flight of stairs 3. No driving while in pain or taking pain medications 4. No strenuous activity or heavy lifting for 2 weeks Diet, Nutrition, & wound healin. Avoid alcohol until after you are recovered from your surgery 2. Make sure to eat plenty of lean protein (meat, fish, eggs, cottage cheese, beans) 3. Eat a variety of fruits and vegetables. Eat plenty of high fiber foods to avoid constipation. 4. Drink plenty of liquids to stay hydrated and avoid constipation Pain Medications: 1. Tylenol 650mg every 6 hours as needed and Ibuprofen 600 mg every 6 hours as needed. You may alternate between the 2 medications every 3 hours 2. If a narcotic has been prescribed take as directed only for breakthrough pain For Constipation: 1. Take Milk of Magnesia or MiraLax as needed for constipation Other: 1. You may shower daily. Do not scrub the incisions 2. Do not soak the incisions for 1 week 3. You may alternate ice and heat as needed for pain and swelling Wound Care: 1. Keep the incisions clean and dry Please call our office if you develop: 1. Fevers >101.5 2. Nausea or Vomiting 3. Worsening pain 4. Redness and thick discharge from the wounds If after hours please call the Hospital at and ask to speak to the on-call surgeon Dr. Reagan cell phone: [phone] Referrals: Carmen Reagan MD [ [facility] STAFF PHYSICIAN] - 02/02/23 10:30 am Activity:: Activity as Tolerated Shower/Bathe:: 24 hours Diet:: As Tolerated DS: Diagnosis Discharge Diagnosis (1) Invasive ductal carcinoma of right breast in female: Status: Acute Asessment and Plan: The patient is doing well post-op from their right lumpectomy and Right [place] Lymph node biopsy surgery.? They are having no nausea or vomiting. They are tolerating liquids and a snack. The pt is not having any chest pain or SOB.? Their pain is adequately controlled. They have been able to urinate.? ?HEENT:? no eye pain/drainage/redness/swelling. Mild sore throat ?Cardio- NSR, no chest pain, BP stable- see VS record ?Pulm: no sob or productive cough. No hemoptysis ?Incision- dressing is c/d/i w/ no excessive bleeding or drainage ?I discussed with the patient the findings at the time of surgery and the patient?s progress. ?We reviewed expectations at home; what the patient could expect for recovery time, and in the post-operative period.? We discussed the importance of walking to avoid blood clots and pneumonia.? We discussed and reviewed the patient's post-operative wound care and dressing needs.?? We reviewed their step-metcalf pain management plan, Rx called to the pharmacy of their choice.? We reviewed activity and limitations-see discharge instructions. We reviewed warning signs, and when to seek medical attention- see d/c instructions.?? Patient was given a postoperative follow-up appointment. Patient verbalized understanding of their postoperative instructions, how do to take care of themselves and their incision, and the pain management plan. Please see discharge instructions.?
[2023-01-24] MEDS: Normal Saline 10 ML VIAL IJ (12:58)
[2023-01-24] MEDS: HYDROmorphone 2 MG/ML SYR IVP (12:59)
--- NOTE | 2023-01-24 15:35 | W.PM.HP.N ---
Date of service: 01/24/23 Time of Service: 15:35 Assessment and Plan Assessment and plan (1) Hypoxemia: Status: Acute Assessment and plan: Jane is a 72 year old female who unfortunately has been hypoxemic after surgery, most likely due to over sedation from a very small dose of dilauded. I will admitt overnight for observation. Hopefully we will be ablke to titrate her off the Oxygen and she will be able to go home. Normal diet ambulate with asistance History of Present Illness Narrative: Mrs Moreland is a pleasant 72 year old female s/p right breast lumpectomy and SLN biopsy. She did well through surgery. In the PACU she had some pain and was given 0.5 mg of dilauded. When she was brought to [facility] the patients saturations kept droping into the 80's because she was so tired. After being in [facility] for a few hours she continues to be very sedated and needing Oxygen. Discussed admission with patient and her daughter for safety. Review of Systems All systems reviewed & are unremarkable except as noted in HPI and below PFSH All Active Problems (Updated 01/24/23 @ 15:39 by Carmen Reagan MD) Hypoxemia (Acute) Invasive ductal carcinoma of right breast in female (Acute) Breast mass, right (Acute) Left knee pain (Acute) Heart murmur (Acute) Hx of hypokalemia (Acute) Pelvic organ prolapse quantification stage 3 cystocele (Acute) 2020. Sx 1st noticed. 10/2021. Stage 3 cystocele. Stage 2 uterine prolapse 3 inch #5 ring with support pessary placed with ease. Appropriate fit. Follow-up every 3 months Left hip pain (Acute) TIA (transient ischemic attack) (Chronic) Essential hypertension (Acute) Family hx-breast malignancy (Acute) maternal aunts-in their 50's Hyperlipidemia (Acute) Obesity (Acute) recent weight loss Medical History HTN (hypertension) Obesity Surgical History Colonoscopy - IV Sedation (01/30/17) Colonoscopy - MAC (~2005) N/L History of bilateral ligation of fallopian tubes Hx of lumpectomy (~12/2022) Ligation of fallopian tube Family History Mother , AGE 48 Cancer Father , AGE 81 Heart disease Sister No problems noted. Sister Cancer Brother Heart disease Maternal Aunt Breast cancer Son No problems noted. Son No problems noted. Daughter No problems noted. Maternal Grandfather , age 48 No problems noted. Paternal Grandfather , age 81 No problems noted. Maternal Grandmother , age 38 No problems noted. Paternal Grandmother , age 80 No problems noted. Social History Smoking/Tobacco Use Status: Never Second Hand Exposure: Yes Smoking risk assessment performed?: Yes Alcohol Intake: current Alcohol Intake frequency: holidays/special occasions only Drug use: Never Substance use type: does not use Caregiver/Support person: No Household members: spouse Housing: house Communication Needs: None Do you need help understanding health information?: Rarely Pets and animals: Yes Pets and animals: cat(s) Sexually active: No Do you think of yourself as: straight/heterosexual Current gender identity: female What is your relationship status?: How often do you talk on the phone with friends or family?: decline to answer How often do you get together with friends or relatives?: decline to answer How often do you attend mandaen or scientology services?: decline to answer Do you belong to any clubs or organized social groups?: decline to answer Panel score (0-1 are the most socially isolated patients): 1 What type of physical activity do you participate in: walking Duration: 60-90 minutes/day Frequency: 3-4 times per week Lashon/Gnosticism: Latter-Day Special lashon needs: No Seatbelt use: always Helmet use: No Drive intox or ride w/intox cdl b driver: No Do you feel safe at home: Yes Do you feel safe in your relationship?: Yes Meds Allergies and Home Medications Allergies Allergy/AdvReac Type Severity Reaction Status Date / Time Sulfa (Sulfonamide Allergy Unknown Verified 01/24/23 07:07 Antibiotics) lactose AdvReac Unknown GI UPSET Verified 01/24/23 07:07 lisinopril AdvReac Unknown COUGH Verified 01/24/23 07:07 Home Medications Medication Instructions Recorded Confirmed Type aspirin 81 mg tablet,delayed 1 tab PO DAILY 09/30/12 01/24/23 History release (Ecotrin Low Strength) turmeric root extract 1,053 mg 1,000 mg PO DAILY 11/07/21 01/23/23 History tablet candesartan 16 mg tablet 16 mg PO DAILY #90 tabs 05/10/22 01/24/23 Rx amlodipine 5 mg tablet 5 mg PO DAILY #90 tabs 07/12/22 01/24/23 Rx red yeast rice 600 mg capsule 600 mg PO DAILY 07/26/22 01/24/23 History hydrochlorothiazide 25 mg tablet 25 mg PO DAILY #90 tabs 08/04/22 01/24/23 Rx ljnxjyi-qvqkjdppu-prpnoa-zinc 1 tab PO DAILY 11/13/22 01/23/23 History tablet glucosamine-chondroitin 250 mg-200 1 tab PO DAILY 01/23/23 01/24/23 History mg tablet (Osteo Bi-Flex) tramadol 50 mg tablet 50 mg PO Q6H PRN #14 tabs 01/24/23 Rx Exam Const General: no acute distress and other (very sedated) HENVT Head: normocephalic and atraumatic Resp Effort & Inspection: normal respiratory effort Auscultation: clear to auscultation bilaterally Cardio Rate: regular rate Rhythm: regular rhythm Results Last Vital Signs Temp 97.2 F L 01/24/23 15:24 Pulse 58 L 01/24/23 15:24 Resp 14 01/24/23 15:24 BP 141/74 H 01/24/23 15:24 Pulse Ox 97 01/24/23 15:24 Time Spent Time spent with Patient: <40 minutes Time was spent: ordering medications,tests, procedures and counseling the patient
--- NOTE | 2023-01-24 16:14 | W.ANESPOSTOP ---
Postoperative Evaluation Date, Time and Location Date Performed: 01/24/23 Time Performed: 16:14 Patient Location: Day Surgery Unit Vital Signs Most Recent Imported Vital Signs: Most Recent Vital Signs Temp Pulse Resp BP Pulse Ox 36.2 C L 58 L 14 141/74 H 97 01/24/23 15:24 01/24/23 15:24 01/24/23 15:24 01/24/23 15:24 01/24/23 15:24 Pain Score Most Recent Pain Score: Most Recent Pain Score Pain Level 0 01/24/23 15:24 Assessment Mental Status: Arousable with meaningful communication Airway and Respiratory Function: Patent airway with normal (patient baseline) respiratory exam Cardiovascular Function: Hemodynamically Stable Hydration Status: Adequately Hydrated Nausea & Vomiting: No Nausea or Vomiting Pain: Pt. Denies Any Pain Peripheral Nerve Block: Patient did not receive a nerve block Postoperative Comments:: Being admitted due to nausea, dizziness, sleepiness, and needing 2 lpm NC. ? related to post op opioid
[2023-01-25 05:00] VITALS: BP 122/70; PULSE 59; RESP 20; TEMP 35.8; O2SAT 94
--- NOTE | 2023-01-25 07:21 | PGE_ITS ---
Date of Service Date of service: 01/25/23 Time of Service: 07:21 Assessment and Plan Assessment and plan (1) Hypoxemia: Status: Acute Assessment and plan: Jane is feeling much better this morning. She is off the supplemental oxygen. Her pain is well controlled. She states that the supportive bra has been very helpful. She is tolerating regular diet and is eagerly awaiting breakfast. Discharge home later this morning. Subjective Subjective Interval history since last seen: Jane is feeling really well this morning she denies having any pain or discomfort. She describes that the supportive bra has been providing some comfort and support. She denies having any nausea or vomiting. She is feeling much better compared to yesterday. Exam Const General: cooperative, healthy appearing and comfortable Orientation: alert and oriented x3 Resp Effort & Inspection: normal respiratory effort, no audible wheezes and no cough Objective Last Vital Signs Temp 35.8 C L 01/25/23 05:00 Pulse 59 L 01/25/23 05:00 Resp 20 01/25/23 05:00 BP 122/70 01/25/23 05:00 Pulse Ox 94 01/25/23 05:00 Time Spent with Patient Time Spent with Patient: <25 minutes Time was spent: preparing to see the patient(eg.review tests), obtaining and/or reviewing separately otained hiistory, ordering medications,tests, procedures, referring, communicating with other health physician assistant primary care, indepentently interpreting results, counseling the patient and care coordination
[2023-01-25 07:46] VITALS: BP 138/53; PULSE 55; RESP 16; TEMP 36.8; O2SAT 96
--- NOTE | 2023-01-25 08:07 | W.PM.DS.N ---
Date of service: 01/25/23 Time of Service: 08:07 DS: Diagnosis Discharge Diagnosis (1) Hypoxemia: Status: Acute Discharge Plan Disposition Patient Disposition: Home Condition: Stable Discharge Details Reason For Visit: Lumpectomy Attending Provider: Carmen Reagan Primary Care Provider: Raul Zhou Home Meds and New Rx's Prescriptions: New tramadol 50 mg tablet 50 mg PO Q6H PRNQty: 14 0RF Continued turmeric root extract 1,053 mg tablet 1,000 mg PO DAILY zlldftx-inskeyqpc-jhttjd-zinc Tablet 1 tab PO DAILY red yeast rice 600 mg capsule 600 mg PO DAILY Rx Instructions: give with meal/snack aspirin [Ecotrin Low Strength] 81 MG tablet,delayed release (DR/EC) 1 tab PO DAILY candesartan 16 mg tablet 16 mg PO DAILY Qty: 90 3RF amlodipine 5 mg tablet 5 mg PO DAILY Qty: 90 3RF hydrochlorothiazide 25 mg tablet 25 mg PO DAILY Qty: 90 3RF glucosamine-chondroitin [Osteo Bi-Flex] 250-200 mg Tablet 1 tab PO DAILY Discharge Instructions Instructions: Breast Lumpectomy (DC) Additional Instructions: Activity at Home after surgery: 1. Make sure you walk outside at least 4 times per day 2. You should be able to climb a flight of stairs 3. No driving while in pain or taking pain medications 4. No strenuous activity or heavy lifting for 2 weeks Diet, Nutrition, & wound healin. Avoid alcohol until after you are recovered from your surgery 2. Make sure to eat plenty of lean protein (meat, fish, eggs, cottage cheese, beans) 3. Eat a variety of fruits and vegetables. Eat plenty of high fiber foods to avoid constipation. 4. Drink plenty of liquids to stay hydrated and avoid constipation Pain Medications: 1. Tylenol 650mg every 6 hours as needed and Ibuprofen 600 mg every 6 hours as needed. You may alternate between the 2 medications every 3 hours 2. If a narcotic has been prescribed take as directed only for breakthrough pain For Constipation: 1. Take Milk of Magnesia or MiraLax as needed for constipation Other: 1. You may shower daily. Do not scrub the incisions 2. Do not soak the incisions for 1 week 3. You may alternate ice and heat as needed for pain and swelling Wound Care: 1. Keep the incisions clean and dry Please call our office if you develop: 1. Fevers >101.5 2. Nausea or Vomiting 3. Worsening pain 4. Redness and thick discharge from the wounds If after hours please call the Hospital at and ask to speak to the on-call surgeon Dr. Reagan cell phone: [phone] Stand Alone Forms: Anesthesia Discharge Inst[facility] Graciela Mathews ([facility]), Nursing Discharge Form Referrals: Carmen Reagan MD [ [facility] STAFF PHYSICIAN] - 02/02/23 10:30 am Activity:: Activity as Tolerated Shower/Bathe:: 24 hours Diet:: As Tolerated Discharge Orders Discharge Orders: Discharge Order (Routine); Ordered 01/25/23 Ordered By: Jie Dickinson Discharge Data Discharge Date/Time-TO BE ENTERED AT DEPARTURE: 01/25/23 10:57 Discharge Comment: dc home DS: Summary Time Spent with Patient providing and/or coordinating discharge services: Less than 30 minutes Status at Discharge Functional status at discharge: independent ambulation Overall status at discharge: patient is back to baseline Mental Status: mental status grossly normal Speech and Movement: speech and movement normal Mood: congruent mood Affect: normal affect Exam Const General: cooperative, healthy appearing and comfortable Orientation: alert and oriented x3 Resp Effort & Inspection: normal respiratory effort, no audible wheezes and no cough Psych Mental Status: mental status grossly normal Speech and Movement: speech and movement normal Mood: congruent mood Affect: normal affect DS: Data Vitals/I&O Vitals and I&O: Vital Signs Temperature 36.8 C 01/25/23 07:46 Temperature Source Tympanic 01/25/23 07:46 Pulse 55 L 01/25/23 07:46 Pulse Rhythm Irregular 01/24/23 17:00 Respiratory Rate 16 01/25/23 07:46 Respiratory Effort Normal, Non-Labored 01/24/23 22:05 Respiratory Depth Normal 01/24/23 22:05 Respiratory Pattern Normal 01/24/23 22:05 Blood Pressure 138/53 L 01/25/23 07:46 Pulse Oximetry 96 01/25/23 07:46 Respiratory End-tidal CO2 44 01/24/23 13:12 Oxygen Delivery Method Room Air 01/25/23 07:46 Oxygen Flow Rate 0 01/25/23 07:46 Pain Level 0 01/25/23 07:46 Intake & Output 01/24/23 01/25/23 01/25/23 18:59 06:59 18:59 Intake Total 1120 / 1120 Output Total 200 / 500 300 / 500 Balance 920 / 620 -300 / 620 Weight 75.6 kg Intake: IV 800 / 800 Oral 320 / 320 Output: Urine 300 / 300 Emesis 200 / 200 Other: Urine Color Green Urine Odor Normal Emesis Description Bile Clear/Water Voiding Methods Toilet PFSH All Active Problems (Updated 01/24/23 @ 15:39 by Carmen Reagan MD) Hypoxemia (Acute) Invasive ductal carcinoma of right breast in female (Acute) Breast mass, right (Acute) Left knee pain (Acute) Heart murmur (Acute) Hx of hypokalemia (Acute) Pelvic organ prolapse quantification stage 3 cystocele (Acute) 2020. Sx 1st noticed. 10/2021. Stage 3 cystocele. Stage 2 uterine prolapse 3 inch #5 ring with support pessary placed with ease. Appropriate fit. Follow-up every 3 months Left hip pain (Acute) TIA (transient ischemic attack) (Chronic) Essential hypertension (Acute) Family hx-breast malignancy (Acute) maternal aunts-in their 50's Hyperlipidemia (Acute) Obesity (Acute) recent weight loss Medical History HTN (hypertension) Obesity Surgical History Colonoscopy - IV Sedation (01/30/17) Colonoscopy - MAC (~2005) N/L History of bilateral ligation of fallopian tubes Hx of lumpectomy (~12/2022) Ligation of fallopian tube Family History Mother , AGE 48 Cancer Father , AGE 81 Heart disease Sister No problems noted. Sister Cancer Brother Heart disease Maternal Aunt Breast cancer Son No problems noted. Son No problems noted. Daughter No problems noted. Maternal Grandfather , age 48 No problems noted. Paternal Grandfather , age 81 No problems noted. Maternal Grandmother , age 38 No problems noted. Paternal Grandmother , age 80 No problems noted. Social History Smoking/Tobacco Use Status: Never Second Hand Exposure: Yes Smoking risk assessment performed?: Yes Alcohol Intake: current Alcohol Intake frequency: holidays/special occasions only Drug use: Never Substance use type: does not use Caregiver/Support person: No Household members: spouse Housing: house Communication Needs: None Do you need help understanding health information?: Rarely Pets and animals: Yes Pets and animals: cat(s) Sexually active: No Do you think of yourself as: straight/heterosexual Current gender identity: female What is your relationship status?: How often do you talk on the phone with friends or family?: decline to answer How often do you get together with friends or relatives?: decline to answer How often do you attend scientologist or druze services?: decline to answer Do you belong to any clubs or organized social groups?: decline to answer Panel score (0-1 are the most socially isolated patients): 1 What type of physical activity do you participate in: walking Duration: 60-90 minutes/day Frequency: 3-4 times per week Lashon/Lutheran: Judaism Special lashon needs: No Seatbelt use: always Helmet use: No Drive intox or ride w/intox lease purchase truck driver: No Do you feel safe at home: Yes Do you feel safe in your relationship?: Yes Time Spent with Patient Time Spent with Patient: <45 minutes Time was spent: preparing to see the patient(eg.review tests), obtaining and/or reviewing separately otained hiistory, ordering medications,tests, procedures, referring, communicating with other health medicare sales executive, indepentently interpreting results, counseling the patient and care coordination
[2023-01-25 08:45] VITALS: BP 159/71; PULSE 63
[2023-01-25] MEDS: Aspirin E.C. 81 MG TABEC PO (08:46)
[2023-01-25] MEDS: hydroCHLOROthiazide 25 MG TAB PO (08:46)
[2023-01-25] MEDS: amLODIPine 5 MG TAB PO (08:46)
== END 2023-01-25 10:57 | disposition home or self-care (01) ==
LOC: SUR 14:47 → MS 17:12
PROVIDERS: PCP Nurse Practitioner Family; Visit Provider Surgery
PROC: (CPT 19120; principal; 2023-01-24 13:45)
PROC: (CPT 38525; 2023-01-24 13:45)
DX: C50.911 Malignant neoplasm of unspecified site of right female breast (principal); Z80.3 Family history of malignant neoplasm of breast; I10 Essential (primary) hypertension; E78.5 Hyperlipidemia, unspecified; Z79.899 Other long term (current) drug therapy
CPT/HCPCS: 38525; 19301; 38792; 77061; 77065; A9541; 76942; 88307; G0279; G0378; J0690; J1100; J1170; J1644; J2001; J2405; J2704; J3010

== ENCOUNTER → 2023-02-02 10:18 | Outpatient (BNVA) | payer MEDICARE, SELFPAY | PROVIDERS: PCP Nurse Practitioner Family; Referring Provider Nurse Practitioner Family; Visit Provider Surgery | DX: Z48.817 Encounter for surgical aftercare following surgery on the skin and subcutaneous tissue (principal); C50.911 Malignant neoplasm of unspecified site of right female breast ==

== ENCOUNTER 2023-03-07 07:43 | Day surgery (SDC) | payer MEDICARE, SELFPAY ==
--- NOTE | 2023-03-07 06:48 | W.ANESPRE ---
General Info Date of Service Date Performed: 03/07/23 Height: 5 ft 2 in Weight: 75.296 kg Body Mass Index (BMI): 30.3 Surgical Procedure: Operation Date: 03/07/23 08:40 Proposed Procedure Side Surgeon p Re-Excision of Skin Rt Breast Right Carmen Reagan MD Meds Allergies and Home Medications Allergies Allergy/AdvReac Type Severity Reaction Status Date / Time Sulfa (Sulfonamide Allergy Unknown Verified 03/07/23 07:49 Antibiotics) lactose AdvReac Unknown GI UPSET Verified 03/07/23 07:49 lisinopril AdvReac Unknown COUGH Verified 03/07/23 07:49 Home Medication Medication Instructions Recorded aspirin 81 mg tablet,delayed 1 tab PO DAILY 09/30/12 release (Ecotrin Low Strength) turmeric root extract 1,053 mg 1,000 mg PO DAILY 11/07/21 tablet candesartan 16 mg tablet 16 mg PO DAILY #90 tabs 05/10/22 amlodipine 5 mg tablet 5 mg PO DAILY #90 tabs 07/12/22 red yeast rice 600 mg capsule 600 mg PO DAILY 07/26/22 hydrochlorothiazide 25 mg tablet 25 mg PO DAILY #90 tabs 08/04/22 qoxnvfa-eanwgdrkf-oimiho-zinc 1 tab PO DAILY 11/13/22 tablet glucosamine-chondroitin 250 mg-200 1 tab PO DAILY 01/23/23 mg tablet (Osteo Bi-Flex) Current Visit Medications: Current Medications Generic Name Dose Route Start Last Admin Trade Name Freq PRN Reason Stop Dose Admin Ringer's Solution 1,000 mls @ 80 mls/hr 03/07/23 06:00 IV 04/05/23 23:59 INFUSION FEDERICO IV Miscellaneous Supplies 1 each 03/07/23 06:00 Iv Access IV 04/05/23 23:59 DIRECTED FEDERICO Sodium Chloride 0 ml 03/07/23 06:00 Normal Saline Flush 10 Ml Syr IV 04/05/23 23:59 PRN PRN Sodium Chloride 0 ml 03/07/23 06:00 Normal Saline 10 Ml Vial IJ 04/05/23 23:59 DIRECTED PRN Sterile Water 0 ml 03/07/23 06:00 Water,Injection,Sterile 10 Ml Vial IJ 04/05/23 23:59 DIRECTED PRN PFSH Active Problems Active Problems: Problem Status Onset Code Hypoxemia R09.02 Invasive ductal carcinoma of right breast in female C50.911 Breast mass, right N63.10 Left knee pain M25.562 Heart murmur R01.1 Hx of hypokalemia Z86.39 Pelvic organ prolapse quantification stage 3 cystocele N81.10 Left hip pain M25.552 TIA (transient ischemic attack) G45.9 Essential hypertension I10 Family hx-breast malignancy Z80.3 Hyperlipidemia E78.5 Obesity E66.9 Medical History Medical History HTN (hypertension) Obesity Surgical History Surgical History Colonoscopy - IV Sedation (01/30/17) Colonoscopy - MAC (~2005) N/L History of bilateral ligation of fallopian tubes Hx of lumpectomy (~12/2022) Ligation of fallopian tube Tobacco Smoking/Tobacco Use Status: Never Passive smoking exposure: Yes Second hand exposure: Yes Alcohol Alcohol Intake: current Alcohol intake frequency: holidays/special occasions only Substance Use Substance use: Never Substance use type: does not use Vital Signs and Lab Results Lab Results Blood Type / Crossmatch: No Data to Display Complete Blood Count: No Data to Display Complete Metabolic Panel: No Data to Display Liver Function Panel: No Data to Display Coagulation Panel: No Data to Display Cardiac Panel: No Data to Display Arterial Blood Gas: No Data to Display Venous Blood Gas: No Data to Display Pancreas Panel: No Data to Display Thyroid Panel: No Data to Display Infectious Disease: No Data to Display Blood Cultures: No Data to Display Toxicology Panel: No Data to Display Imaging and Studies Imaging and Studies Study information below may be from another EMR and interpreted by another provider. Please see original notes in EMR for more complete details. Carotid Artery Summary:: Patient Name: JAJA CARRILLO #: [id number]: ION Ordering Provider: Kasie Coreas #: [id number]: REG CLI Primary Care Provider: Aubree Coreas of Exam: 08/22/18Sex: F Admission Date: 08/22/18 : 1950 Age: 68 Exam(s) a US:US carotid SYMPTOMS/DIAGNOSIS: TRANSIENT TRANSIENT ISCHEMIC ATTACK, G45.9, LEFT-SIDED WEAKNESS, R53.1 CAROTID ULTRASOUND: There are small foci of calcification in the common carotid bulbs. The velocity measurements obtained are within the normal range bilaterally in the internal carotid arteries. The vertebral arteries show antegrade flow. IMPRESSION: Small foci of calcific plaque in the common carotid bulbs. No significant internal carotid artery stenosis. Ordered By: Hector Coreas CC: Dictated By: Kristie Meadows M.D. 08/22/18 1422 <Electronically signed by Kristie Meadows M.D.> 08/22/18 1442 Transcribed By: Gideon Dickson 08/22/18 1433 This is privileged, confidential information intended only for the provider named. Any use or distribution by any person other than this provider is strictly prohibited. If you receive this report in error, please notify us immediately at [phone] and return the original report to us at the address above. Thank-you. Anesthesia Assessment and Plan Anesthesia History Personal History: No History of Anesthesia Complications Family History: No Family History of Anesthesia Complications Exercise Tolerance Exercise Tolerance: Metabolic Equivalents>4 Pertinent Negatives Pertinent Negatives: No Symptoms of GERD and No History of CVA/TIA Cardiac & Pulmonary Exam Cardiac Exam: Normal S1/S2 Heart Sounds and Known Innocent Murmur Pulmonary Exam: Clear Bilateral Breath Sounds (On the Left, Right side is diminished. Recent URI, reports no cough since 02/28/2023) Cardiac and Pulmonary Comment:: Ordering a Duoneb preoperatively. Implantable Cardiac Device Does patient have a Pacemaker or an ICD?: No Airway Exam Known Difficult Airway: No Mallampati Class: 3 Mouth Opening: Normal (> 3cm) Thyromental Distance: Greater than 3 cm Neck Range of Motion: Full ROM Neck Circumference: Normal Teeth Condition: Normal Dentition ASA Classification ASA Score: ASA 3 Emergency Case?: Yes NPO Status NPO Status: NPO Clears >2 hours, Solids >8 hours Anesthesia Plan Resuscitation Status: Full Code Anesthesia Technique: General Anesthesia Airway Planned: Natural Airway Pain Management: Surgeon and patient request nerve block Monitors Used: Standard Monitors Preoperative Comments:: Patient with recent URI, cough: diagnosed as bronchitis per [facility]. Patient initially postponed, however, back on schedule as surgeon declared case urgent. Due to recent URI I do not want to instrument this patients airway due to elevated risk of PRAE. Discussed this with surgeon, stated just anterior margins/skin, minimally invasive. My recommendation and our option is a true MAC. I discussed extensively with the patient, she is aware of the risk and my concerns and would like to proceed today.
--- NOTE | 2023-03-07 06:59 | W.PM.HP.N ---
Date of service: 03/07/23 Time of Service: 09:10 Assessment and Plan Assessment and plan (1) Invasive ductal carcinoma of right breast in female: Status: Acute Assessment and plan: Jane is here today to have a reexcision of her scar and subcutaneous tissue. When I did her partial mastectomy her pathology showed that the anterior margin was focally positive in a couple of places. I discussed the procedure with Jane. My plan is for her to just get a little bit of sedation and on the lot of local. I will revise the scar tissue and remove any subcutaneous tissue underneath that area to make sure that I got all of the cancer. We discussed the possible complications which include but are not limited to bleeding, infection, wound dehiscence, seroma or hematoma. I answered her questions to her satisfaction she wished to proceed. She seemed to have a good understanding of the proposed procedure as well as the possible complications. Proceed with revision of scar with removal of subcutaneous tissue to get clear margins. History of Present Illness Narrative: Jane is back today in same-day surgery to have her scar removed. She was diagnosed with breast cancer underwent a partial mastectomy. Her pathology came back with her anterior margin being positive in a couple of areas. Plan is for revision today and removal of some more skin and tissue to make sure that I got all of the cancer. Jane is doing well otherwise. She did have a diagnosis of bronchitis a few weeks ago. She does not feel short of breath. She had a nagging cough for a week after the diagnosis. She states she normally gets a cough when she gets nervous. She has had no fevers or chills. She did well with her first surgery and had no complications afterwards. Review of Systems All systems reviewed & are unremarkable except as noted in HPI and below PFSH All Active Problems Hypoxemia (Acute) Invasive ductal carcinoma of right breast in female (Acute) Breast mass, right (Acute) Left knee pain (Acute) Heart murmur (Acute) Hx of hypokalemia (Acute) Pelvic organ prolapse quantification stage 3 cystocele (Acute) 2020. Sx 1st noticed. 10/2021. Stage 3 cystocele. Stage 2 uterine prolapse 3 inch #5 ring with support pessary placed with ease. Appropriate fit. Follow-up every 3 months Left hip pain (Acute) TIA (transient ischemic attack) (Chronic) Essential hypertension (Acute) Family hx-breast malignancy (Acute) maternal aunts-in their 50's Hyperlipidemia (Acute) Obesity (Acute) recent weight loss Medical History HTN (hypertension) Obesity Surgical History Colonoscopy - IV Sedation (01/30/17) Colonoscopy - MAC (~2005) N/L History of bilateral ligation of fallopian tubes Hx of lumpectomy (~12/2022) Ligation of fallopian tube Family History Mother , AGE 48 Cancer Father , AGE 81 Heart disease Sister No problems noted. Sister Cancer Brother Heart disease Maternal Aunt Breast cancer Son No problems noted. Son No problems noted. Daughter No problems noted. Maternal Grandfather , age 48 No problems noted. Paternal Grandfather , age 81 No problems noted. Maternal Grandmother , age 38 No problems noted. Paternal Grandmother , age 80 No problems noted. Social History Smoking/Tobacco Use Status: Never Second Hand Exposure: Yes Smoking risk assessment performed?: Yes Alcohol Intake: current Alcohol Intake frequency: holidays/special occasions only Drug use: Never Substance use type: does not use Caregiver/Support person: No Household members: spouse Housing: house Communication Needs: None Do you need help understanding health information?: Rarely Pets and animals: Yes Pets and animals: cat(s) Sexually active: No Do you think of yourself as: straight/heterosexual Current gender identity: female What is your relationship status?: How often do you talk on the phone with friends or family?: decline to answer How often do you get together with friends or relatives?: decline to answer How often do you attend cheondoism or christianity services?: decline to answer Do you belong to any clubs or organized social groups?: decline to answer Panel score (0-1 are the most socially isolated patients): 1 What type of physical activity do you participate in: walking Duration: 60-90 minutes/day Frequency: 3-4 times per week Lashon/Restorationist: Buddhist Special lashon needs: No Seatbelt use: always Helmet use: No Drive intox or ride w/intox auto transport driver: No Do you feel safe at home: Yes Do you feel safe in your relationship?: Yes Meds Allergies and Home Medications Allergies Allergy/AdvReac Type Severity Reaction Status Date / Time Sulfa (Sulfonamide Allergy Unknown Verified 03/07/23 07:49 Antibiotics) lactose AdvReac Unknown GI UPSET Verified 03/07/23 07:49 lisinopril AdvReac Unknown COUGH Verified 03/07/23 07:49 Home Medications Medication Instructions Recorded Confirmed Type aspirin 81 mg tablet,delayed 1 tab PO DAILY 09/30/12 03/07/23 History release (Ecotrin Low Strength) turmeric root extract 1,053 mg 1,000 mg PO DAILY 11/07/21 03/07/23 History tablet candesartan 16 mg tablet 16 mg PO DAILY #90 tabs 05/10/22 03/07/23 Rx amlodipine 5 mg tablet 5 mg PO DAILY #90 tabs 07/12/22 03/07/23 Rx red yeast rice 600 mg capsule 600 mg PO DAILY 07/26/22 03/07/23 History hydrochlorothiazide 25 mg tablet 25 mg PO DAILY #90 tabs 08/04/22 03/07/23 Rx qlsfffs-vbjjvooqs-uqjzjp-zinc 1 tab PO DAILY 11/13/22 03/06/23 History tablet glucosamine-chondroitin 250 mg-200 1 tab PO DAILY 01/23/23 03/07/23 History mg tablet (Osteo Bi-Flex) Exam Const General: comfortable and no acute distress Nutritional Appearance: average body habitus Orientation: alert and oriented x3 HENMT Head: normocephalic and atraumatic Chest Other: Right Breast- well healed incision. Resp Effort & Inspection: normal respiratory effort Auscultation: clear to auscultation bilaterally Cardio Rate: regular rate Rhythm: regular rhythm GI Inspection: normal to inspection Time Spent Time spent with Patient: <40 minutes Time was spent: counseling the patient
--- NOTE | 2023-03-07 06:59 | W.PM.OP ---
Date of service: 03/07/23 Time of Service: 10:02 Operative Note Operative Note DATE OF PROCEDURE: 03/07/23 PRE-OP DIAGNOSIS: positive margin on lumpectomy site POST-OP DIAGNOSIS: same PROCEDURE: Re-excision of anterior margin over lumpectomy site SURGEON: Carmen Reagan VOICE STUDIES DIRECTOR: Jie Dickinson ANESTHESIA TYPE: Local By Surgeon and MAC Refer to Anesthesia Record ESTIMATED BLOOD LOSS: 15 PATHOLOGY: other (skin and subcutaneous tissue) COMPLICATIONS: None Patient was transported to: same day Patient's condition: stable Indications: Jane is here today to have a reexcision of her scar and subcutaneous tissue.? When I did her partial mastectomy her pathology showed that the anterior margin was focally positive in a couple of places.? I discussed the procedure with Jane.? My plan is for her to just get a little bit of sedation and on the lot of local.? I will revise the scar tissue and remove any subcutaneous tissue underneath that area to make sure that I got all of the cancer.? We discussed the possible complications which include but are not limited to bleeding, infection, wound dehiscence, seroma or hematoma.? I answered her questions to her satisfaction she wished to proceed.? She seemed to have a good understanding of the proposed procedure as well as the possible complications. Findings: pocket with serous fluid Procedure Description: After informed consent was obtained in the right breast was marked in same-day surgery patient was taken to the operating room and placed in the supine position on the table. Monitors were applied and a timeout was done. The patient's name date of , allergies to medications, procedure and site, DVT prophylaxis and antibiotic prophylaxis were reviewed. Fire risk was assessed. The patient was then sedated. Once comfortable and sedated a mixture of oral and quarter percent bupivacaine was injected along the medial portion of her incision. The old scar was removed using a 15 blade and the subcutaneous tissue was removed down to the anterior portion of the old lumpectomy site. Once the tissue and anterior capsule were removed the specimen was marked in the medial corner with a silk suture. The cavity was then irrigated with some fluid. Bleeding was noted from the subcutaneous tissue and this was suture-ligated. Other small areas of bleeding were cauterized. The cavity was again irrigated. The fluid was removed normal bleeding was identified. Next the subcutaneous tissue was reapproximated with 3-0 Vicryl interrupted sutures. The skin was then reapproximated with a running 4-0 Monocryl suture. The skin was cleaned and dried and Dermabond was applied. The patient was woken up placed back on the rfort dodge and taken back to same-day surgery in stable condition. Sponge instrument needle counts were correct at the end of the case. There were no immediate complications.
--- NOTE | 2023-03-07 07:00 | PDOC.DSDIS_ITS ---
Date of service: 03/07/23 Time of Service: 10:38 Discharge Plan Disposition Patient Disposition: Home Condition: Stable Discharge Details Reason For Visit: re-excision of positive margin Attending Provider: Carmen Reagan Primary Care Provider: Raul Zhou Home Meds and New Rx's Prescriptions: Continued turmeric root extract 1,053 mg tablet 1,000 mg PO DAILY ldvcobt-vabqkhyth-nwpnuf-zinc Tablet 1 tab PO DAILY red yeast rice 600 mg capsule 600 mg PO DAILY Rx Instructions: give with meal/snack aspirin [Ecotrin Low Strength] 81 MG tablet,delayed release (DR/EC) 1 tab PO DAILY candesartan 16 mg tablet 16 mg PO DAILY Qty: 90 3RF amlodipine 5 mg tablet 5 mg PO DAILY Qty: 90 3RF hydrochlorothiazide 25 mg tablet 25 mg PO DAILY Qty: 90 3RF glucosamine-chondroitin [Osteo Bi-Flex] 250-200 mg Tablet 1 tab PO DAILY Discharge Instructions Instructions: Care For Your Absorbable Stitches (DC) Additional Instructions: Activity at Home after surgery: 1. Make sure you walk at least 4 times per day 2. You should be able to climb a flight of stairs 3. No driving while in pain or taking pain medications 4. No strenuous activity or heavy lifting for 2 weeks Diet, Nutrition, & wound healin. Avoid alcohol until after you are recovered from your surgery 2. Make sure to eat plenty of lean protein (meat, fish, eggs, cottage cheese, beans) 3. Eat a variety of fruits and vegetables. Eat plenty of high fiber foods to avoid constipation. 4. Drink plenty of liquids to stay hydrated and avoid constipation Pain Medications: 1. Tylenol 650mg every 6 hours as needed and Ibuprofen 600 mg every 6 hours as needed. You may alternate between the 2 medications every 3 hours 2. If a narcotic has been prescribed take as directed only for breakthrough pain For Constipation: 1. Take Milk of Magnesia or MiraLax as needed for constipation Other: 1. You may shower daily. Do not scrub the incisions 2. Do not soak the incisions for 1 week 3. You may alternate ice and heat as needed for pain and swelling Please call our office if you develop: 1. Fevers >101.5 2. Nausea or Vomiting 3. Worsening pain 4. Redness and thick discharge from the wounds If after hours please call the Hospital at and ask to speak to the on-call surgeon Dr. Reagan's cell phone: [phone]. If I do not answer I may not have service. Leave a message. If I do not call you back in 30 minutes please call the hospital and ask to speak to the road traffic controller surgeon. Referrals: Carmen Reagan MD [ [facility] STAFF PHYSICIAN] - 03/23/23 10:30 am Activity:: Activity as Tolerated Remove Dressings/Wound Care:: Do Not Remove Shower/Bathe:: 24 hours Diet:: As Tolerated Discharge Orders Discharge Orders: Discharge Order (Routine); Ordered 03/07/23 Ordered By: Carmen Reagan DS: Diagnosis Discharge Diagnosis (1) Invasive ductal carcinoma of right breast in female: Status: Acute Asessment and Plan: The patient is doing well post-op from their re-excision of anterior margine of prior lumpectomy site surgery.? They are having no nausea or vomiting. They are tolerating liquids and a snack. The pt is not having any chest pain or SOB.? Their pain is adequately controlled. They have been able to urinate.? ?HEENT:? no eye pain/drainage/redness/swelling. Mild sore throat ?Cardio- NSR, no chest pain, BP stable- see VS record ?Pulm: no sob or productive cough. No hemoptysis ?Incision- dressing is c/d/i w/ no excessive bleeding or drainage ?I discussed with the patient the findings at the time of surgery and the patient?s progress. ?We reviewed expectations at home; what the patient could expect for recovery time, and in the post-operative period.? We discussed the importance of walking to avoid blood clots and pneumonia.? We discussed and reviewed the patient's post-operative wound care and dressing needs.?? We reviewed their step-metcalf pain management plan, Rx called to the pharmacy of their choice.? We reviewed activity and limitations-see discharge instructions. We reviewed warning signs, and when to seek medical attention- see d/c instructions.?? Patient was given a postoperative follow-up appointment. Patient verbalized understanding of their postoperative instructions, how do to take care of themselves and their incision, and the pain management plan. Please see discharge instructions.?
[2023-03-07 07:53] VITALS: BP 182/79; PULSE 68; RESP 16; TEMP 36.1; O2SAT 99
[2023-03-07] MEDS: Lactated Ringers 1,000 ML 80 ML IV (08:15)
[2023-03-07 08:58] VITALS: BMI 30.3
[2023-03-07 09:13] VITALS: PULSE 57; RESP 1; RESP 16; RESP 8; O2SAT 97
[2023-03-07] MEDS: Albuterol/Ipratropium 3 ML UPD VIAL UPD (09:13)
[2023-03-07 09:18] VITALS: PULSE 75; RESP 1; RESP 16; RESP 8; O2SAT 99
[2023-03-07] MEDS: Bupivacaine LIPOSOME/PF 133 MG/10 ML VIAL IJ (09:42)
--- NOTE | 2023-03-07 09:43 | BREAST_PTH ---
PATIENT: Jane Moreland LOC: [facility] U#:[id number] AGE/SX: 72/F ROOM: RE03/07/[address]: Carmen Reagan MD : 1950 BED: DIS: 03/07/2023 SPEC #: [id number] RECD: 03/07/23 12:25 STATUS: GRANT REAce #: [id number] JIMMY: 03/07/23 09:[address]: Carmen Reagan DEPT: Surgical Specimen RECD BY: Alyse Nunez ENTERED: 03/07/23 12:27 SP TYPE: Breast OTHR DR: Rual Zhou, LESIA Tissues: 1 - BREAST INCISION/EXCISION Procedures: GROSS AND MICRO LEVEL 5 Comments: [id number]
[2023-03-07] MEDS: Bupivacaine 0.25% Pres-Free 10 ML VIAL (09:48)
[2023-03-07 10:08] VITALS: BP 132/78; PULSE 67; RESP 16; TEMP 36.5; O2SAT 94
[2023-03-07 10:38] VITALS: BP 127/71; PULSE 69; RESP 16; TEMP 36.7; O2SAT 93
--- NOTE | 2023-03-07 10:41 | W.ANESPOSTOP ---
Postoperative Evaluation Date, Time and Location Date Performed: 03/07/23 Time Performed: 10:08 Patient Location: Day Surgery Unit Vital Signs Most Recent Imported Vital Signs: Most Recent Vital Signs Temp Pulse Resp BP Pulse Ox 36.5 C 67 16 132/78 94 03/07/23 10:08 03/07/23 10:08 03/07/23 10:08 03/07/23 10:08 03/07/23 10:08 Pain Score Most Recent Pain Score: Most Recent Pain Score Pain Level 0 03/07/23 10:08 Assessment Mental Status: Awake (Alert & Oriented to Patient Baseline) Airway and Respiratory Function: Patent airway with normal (patient baseline) respiratory exam Cardiovascular Function: Hemodynamically Stable Hydration Status: Adequately Hydrated Nausea & Vomiting: No Nausea or Vomiting Pain: Pt. Denies Any Pain Peripheral Nerve Block: Patient did not receive a nerve block
== END 2023-03-07 11:05 | disposition home or self-care (01) ==
PROVIDERS: PCP Nurse Practitioner Family; Visit Provider Surgery
PROC: (CPT 19120; principal; 2023-03-07 08:30)
DX: C50.911 Malignant neoplasm of unspecified site of right female breast (principal); I10 Essential (primary) hypertension; E78.5 Hyperlipidemia, unspecified; Z86.73 Personal history of transient ischemic attack (TIA), and cerebral infarction without residual deficits
CPT/HCPCS: 19120; 88307; 94640; 94760; J0690; J2250; J2405; J2704; J3010; J7620

== ENCOUNTER → 2023-03-27 08:43 | Outpatient (BNVA) | payer MEDICARE, SELFPAY | PROVIDERS: PCP Nurse Practitioner Family; Referring Provider Nurse Practitioner Family; Visit Provider Surgery | DX: Z48.817 Encounter for surgical aftercare following surgery on the skin and subcutaneous tissue (principal) ==

== ENCOUNTER → 2023-06-28 02:14 | Outpatient (CLI) | payer MEDICARE, SELFPAY ==
--- NOTE | 2023-06-28 | DI.DEXA_ITS ---
Exam(s) XR DEXA BONE DENSITY W/WO MINAL EXAM: XR DEXA BONE DENSITY W/WO MINAL CLINICAL HISTORY: SCREENING FOR OSTEOPOROSIS IN POSTMENOPAUSAL WOMAN,Z78.0,RT BREAST CA,LONG TECHNIQUE: COMPARISON: CR XR DEXA BONE DENSITY W/WO MINAL from 11/03/2020 FINDINGS: Lateral Spine Image: Unremarkable. No compression deformities identified. Left hip: Total T-Score: -0.1. This compares to -0.4 on the prior examination. Total Z-Score: 1.5 T- and Z-scores: Within normal limits. Lumbar Spine: Total T-Score: 2.1. This compares to 1.7 on the prior examination. Total Z-Score: 4.2 T- and Z-scores: Within normal limits. IMPRESSION: No evidence of osteoporosis.
== END ==
PROVIDERS: PCP Nurse Practitioner Family; Visit Provider Internal Medicine
DX: Z78.0 Asymptomatic menopausal state (principal); Z13.820 Encounter for screening for osteoporosis
CPT/HCPCS: 77080

== ENCOUNTER 2023-07-24 02:37 | Outpatient (CLI) | payer MEDICARE, SELFPAY ==
[2023-07-24 09:44] LABS: Abs Immature Grans 0.02 10^3/uL (0.0-0.06); Absolute Basophil Count 0.03 10^3/uL (0.0-0.2); Absolute Eosinophil Count 0.04 10^3/uL (0.0-0.7); Absolute Lymphocyte Count 1.56 10^3/uL (1.2-3.4); Absolute Monocyte Count 0.38 10^3/uL (0.1-0.8); Absolute Neutrophil Count 3.06 10^3/uL (1.2-6.7); Basophils % 0.6; Eosinophils % 0.8; HCT 39.2 % (36.0-46.0); HGB 13.1 g/dL (11.2-15.7); Immature Grans % 0.4; Lymphocytes % 30.6; MCHC 33.4 % (32.0-36.0); MCV 84 fL (80-95); MPV 9.2 fL (8.0-11.0); Monocytes % 7.5; Neutrophils % 60.1; Platelet Count 215 10^3/uL (130-400); RBC 4.68 10^6/uL (3.93-5.22); RDW 12.9 % (11.7-14.6); RDW-SD 38.7 fL; WBC 5.09 10^3/uL (4.4-10.8)
[2023-07-24 09:58] LABS: ALT 24 U/L (14-59); AST 15 U/L (15-37); Albumin 3.7 g/dL (3.4-5.0); Alkaline Phosphatase 74 U/L (46-116); Anion Gap 6.5 mmol/L (3-11); BUN 15 mg/dL (7-18); Bilirubin, Total 0.4 mg/dL (0.2-1.0); CO2 32.5 mmol/L (21.0-32.0); CREATININE 0.9 mg/dL (0.55-1.02); Calcium 9.4 mg/dL (8.5-10.1); Chloride 103 mmol/L (98-107); Estimated GFR 68.35 (mL/min/1.73m2); Glucose 85 mg/dL (74-106); Potassium 3.7 mmol/L (3.5-5.1); Sodium 142 mmol/L (136-145); Total Protein 7.7 g/dL (6.4-8.2)
== END 2023-07-24 02:38 | disposition home or self-care (01) ==
LOC: LBO 02:38
PROVIDERS: PCP Nurse Practitioner Family; Visit Provider Internal Medicine
DX: C50.911 Malignant neoplasm of unspecified site of right female breast (principal)
CPT/HCPCS: 36415; 80053; 85025

== ENCOUNTER 2023-11-22 08:41 | Outpatient (CLI) | payer MEDICARE, SELFPAY ==
--- NOTE | 2023-11-22 08:45 | RT.EKG_ITS ---
APPROVED REPORT Exam: Resting ECG Reason for Exam: Abnormal found on exam today. Patient Location: O HR:65 bpm ECG Measurements Heart Rate 65 AXIS GA 149 P 66 QRSd 199 QRS 50 QT 408 T 86 QTc 425 Conclusion Sinus rhythm...normal P axis, V-rate 50- 99 Atrial premature complex...SV complex w/ short R-R interval
== END 2023-11-22 08:42 | disposition home or self-care (01) ==
PROVIDERS: PCP Nurse Practitioner Family; Visit Provider Nurse Practitioner Family
DX: I49.9 Cardiac arrhythmia, unspecified (principal)
CPT/HCPCS: 93005; 93010

== ENCOUNTER → 2023-12-13 00:06 | Outpatient (CLI) | payer MEDICARE, SELFPAY ==
--- NOTE | 2023-12-13 12:04 | DI.US_ITS ---
APPROVED REPORT EXAM: Comprehensive 2D, Doppler, and color-flow Echocardiogram Patient Location: Out-Patient Orthodontist Assistant: Nida Gilliam RDCS (AE) Indications: Heart murmur Other Information Study Quality: Adequate Conclusion Mild concentric left ventricular hypertrophy. Ejection fraction is 58%. Wall motion is normal Normal right ventricular size and function Both atria are normal in size There are no structural or hemodynamically significant valvular abnormalities Ascending aorta measures 3.49 cm Wall motion Left Ventricle The left ventricle is normal size. The left ventricular systolic function is normal. The left ventric ular ejection fraction is within the normal range. Mild concentric left ventricular hypertrophy. Ther e is normal LV segmental wall motion. There is no ventricular septal defect visualized. LVEF is 58%. Right Ventricle The right ventricle is normal size. The right ventricular systolic function is normal. Atria The left atrium size is normal. The right atrium size is normal. The interatrial septum is intact wit h no evidence for an atrial septal defect. Aortic Valve The aortic valve is normal in structure. Aortic valve is trileaflet. There is no aortic valvular sten osis. Trace aortic regurgitation. Mitral Valve The mitral valve is normal in structure. No evidence of mitral valve stenosis. Trace to mild mitral r egurgitation. Tricuspid Valve The tricuspid valve is normal in structure. There is no tricuspid valve stenosis. Trace tricuspid re gurgitation. Unable to assess PA pressure. Pulmonic Valve The pulmonary valve is normal in structure. There is no pulmonic valvular stenosis. Trace pulmonic re gurgitation. Great Vessels The aortic root is normal in size. The ascending aorta is mildly dilated. Aortic arch is normal in ca liber. IVC is normal in size and collapses >50% with inspiration. Pericardium There is no pericardial effusion. 2D Dimensions IVSD d PLAX 1.15 cm F: 0.6-1.0 Ao Root d 2.90 cm F: 2.7 - 3.3 LVPW d PLAX 1.14 cm F: 0.6 - 1.0 Ao Asc Diam d 3.49 cm F: 2.3 - 3.1 LVID d PLAX 4.63 cm F: 3.8 - 5.2 LVDs 3.27 cm F: 2.2 - 3.5 LV EF Teichholz 56.5 % FS 29.51 % LV EDV (Teich) 99.0 mL LV ESV (Teich) 43.1 mL Auto EF LV EDV A4C 104.1 mL LV EDV A2C 108.2 mL LV EDV BP 104.0 mL LV ESV A4C 44.1 mL LV ESV A2C 44.4 mL LV ESV BP 44.1 mL LVEF(%) A4C 57.7 % LVEF(%) A2C 59.0 % LVEF(%) BP 57.6 % LV SV A4C 60.0 ml LV SV A2C 63.8 ml LV SV BP 59.9 ml LV CO A4C 3.9 L/min LV CO A2C 3.9 L/min LV CO BP 3.9 L/min HR A4C 64.98 BPM HR A2C 60.61 BPM LV EDV Index (BP) LA Volume LA Length A4C 5.5 cm LA Length A2C 5.0 cm LA Area A4C s 17.51 cm2 LA Area A2C s 19.01 cm2 LA Vol A4C A-L 46.95 mL LA Vol A2C A-L 61.07 mL LA Vol Biplane A-L 56.2 mL LA Vol/BSA A4C A-L LA Vol/BSA A2C A-L LA Vol/BSA BP A-L 31.8 mL/m2 LA Vol A4C MOD 44.5 mL LA Vol A2C MOD 58.1 mL LA Vol BP MOD 53.4 mL RA Volume RA Area A4C 12.3 cm2 RA ESV A4C (A-L) 28.3mL RA Vol/BSA A4C A-L RA Length A4C 4.5 cm RA ESV A4C (MOD) 27.2mL LV Diastology MV E' medial 0.102 (>0.07 m/s) MV E Vmax 0.71 (0.4-1.3 m/s) MV E/E' MED 6.98 (<14) MV A Vmax 0.80 (0.4-1.3 m/s) MV E' lateral 0.129 (>0.1 m/s) E/A Ratio 0.9 MV E/E' LAT 5.56 (<14) MV E' Average 0.115 m/s MV E/E'(average) 6.19 Aortic Valve AoV Vmax 1.61 m/s LVOT Vmax 1.30 m/s AoV Peak Grad 33.4 mmHg LVOT Peak Grad 6.8 mmHg AoV Area (Vmax) 2.30 cm2 LVOT VTI 0.286 m AoV VTI 0.405 m LVOT Mean Grad 3.5 mmHg AoV Mean Valerio. 1.15 m/s LVOT SV 81.50 mL AoV Mean Grad 6.0 mmHg LVOT Diam s 1.90 cm AoV Area (VTI) 2.01 cm2 AV Regurg Peak Gr. 56.25 mmHg Velocity Ratio 0.81 AR Decel Cole 1.7m/sec2 AR DT 2214 msec AR PHT 642 msec AR Vmax 3.75 m/s Mitral Valve MV DT 226 (160-240 msec) MV Vmax TIPS 0.76 m/s MV Mean Grad 1.1 (<2mmHg) MV VTI 0.238 m Pulmonary Valve PV Vmax 1.09 (0.5-1.5 m/s) RVOT Vmax 0.87 m/s PV Peak Grad 4.8 mmHg RVOT Peak Gr. 3.0 mmHg PV Mean Valerio 0.77 m/s RVOT VTI 0.212 m PV Mean Grad 2.7 mmHg RVOT Mean Gr. 1.7 mmHg
== END ==
PROVIDERS: PCP Nurse Practitioner Family; Visit Provider Nurse Practitioner Family
DX: R01.1 Cardiac murmur, unspecified (principal); I51.7 Cardiomegaly
CPT/HCPCS: 93306

== ENCOUNTER → 2024-01-18 00:03 | Outpatient (CLI) | payer MEDICARE, SELFPAY ==
--- NOTE | 2024-01-18 | DI.MAMMO_ITS ---
Exam(s) MG MAMMO SCREENING 60 MIN DUR EXAM: MG MAMMO SCREENING 60 MIN DUR CLINICAL HISTORY: breast cancer screening, Z12.39 TECHNIQUE: Bilateral full field digital CC and MLO mammographic images were obtained with 3D tomosyn thesis and utilizing computer aided detection (CAD). COMPARISON: Available for comparison. FINDINGS: Masses/Architectural Distortion: The patient is now status post right lumpectomy and radiotherapy. N o suspicious masses are seen. Microcalcifications: No suspicious pleomorphic-type are seen. Skin Thickening/Nipple Retraction: None. IMPRESSION: 1. No significant interval change with no specific features of malignancy noted. 2. Unless there is more urgent need, screening mammography is recommended, as per [employer] guidelines. 3. Findings were discussed with the patient on the date of the examination. BI-RADS Category 2 - Benign Findings Breast Density - Category B - Scattered areas of fibroglandular density Breast density category C or D implies that the patient has dense breast tissue. Dense breast tissue is very common and is not abnormal but dense breast tissue can make it harder to find cancer on a ma mmogram. Also, dense breast tissue may increase their breast cancer risk. This information about the result of the mammogram report was provided to the patient to raise their awareness. Use this report when you speak with the patient about their risks for breast cancer, which includes their family hist ory. At that time, you may recommend for more screening tests (Ultrasound or MRI) as they might be us eful based on their risk. A negative radiographic report should not delay biopsy if a dominant or clinically suspicious mass is present. Up to ten percent of cancers are not identified on mammography. A negative report may reinforce clinical impression. Adenosis and dense breasts may obscure an underlying neoplasm. False positive reports average 6 to 10%. Patient will receive a letter notifying them of these results.
== END ==
PROVIDERS: PCP Nurse Practitioner Family; Visit Provider Nurse Practitioner Family
DX: Z12.39 Encounter for other screening for malignant neoplasm of breast (principal); Z12.31 Encounter for screening mammogram for malignant neoplasm of breast
CPT/HCPCS: 77063; 77067

== ENCOUNTER 2024-01-18 10:54 | Outpatient (CLI) | payer MEDICARE, SELFPAY ==
[2024-01-18 11:12] LABS: Abs Immature Grans 0.02 10^3/uL (0.0-0.06); Absolute Basophil Count 0.02 10^3/uL (0.0-0.2); Absolute Eosinophil Count 0.09 10^3/uL (0.0-0.7); Absolute Monocyte Count 0.27 10^3/uL (0.1-0.8); Absolute Neutrophil Count 2.85 10^3/uL (1.2-6.7); Basophils % 0.4 %; Eosinophils % 1.9 %; HCT 38.1 % (36.0-46.0); HGB 12.9 g/dL (11.2-15.7); Immature Grans % 0.4 %; MCH 28.5 pg (27.0-33.0); MCHC 33.9 % (32.0-36.0); MCV 84 fL (80-95); MPV 9.9 fL (8.0-11.0); Monocytes % 5.6 %; Neutrophils % 58.7 %; Platelet Count 238 10^3/uL (130-400); RBC 4.53 10^6/uL (3.93-5.22); RDW-SD 39.3 fL; WBC 4.85 10^3/uL (4.4-10.8)
[2024-01-18 11:19] LABS: ALT 20 U/L (14-59); AST 12 U/L (15-37); Alkaline Phosphatase 85 U/L (46-116); Anion Gap 11.1 mmol/L (3-11); BUN 21 mg/dL (7-18); Bilirubin, Total 0.56 mg/dL (0.2-1.0); Calcium 9.2 mg/dL (8.5-10.1); Chloride 103 mmol/L (98-107); Estimated GFR 60.23 (mL/min/1.73m2); Glucose 106 mg/dL (74-106); Potassium 3.5 mmol/L (3.5-5.1); Sodium 141 mmol/L (136-145); Total Protein 7.8 g/dL (6.4-8.2)
== END 2024-01-18 10:55 | disposition home or self-care (01) ==
LOC: LBO 10:56
PROVIDERS: PCP Nurse Practitioner Family; Visit Provider Internal Medicine
DX: C50.911 Malignant neoplasm of unspecified site of right female breast (principal)
CPT/HCPCS: 36415; 80053; 85025

== ENCOUNTER 2024-03-28 12:04 | Outpatient (REF) | payer MEDICARE, SELFPAY ==
--- NOTE | 2024-03-28 09:20 | SKI_PTH ---
PATIENT: Jane Moreland LOC: [facility] U#:[id number] AGE/SX: 73/F ROOM: RE03/28/[address]: ADÁN Mcfarland : 1950 BED: DIS: 03/28/2024 SPEC #: [id number] RECD: 03/28/24 18:00 STATUS: GRANT REQ #: [id number] JIMMY: 03/28/24 09:[address]: Rudy Rubin DEPT: Surgical Specimen RECD BY: Alyse Nunez ENTERED: 03/28/24 18:01 SP TYPE: FANNY RODRIGUEZ DR: Raul Zhou, LESIA Tissues: 1 - SKIN BIOPSY(SHAVE/PUNCH) Procedures: SKIN LEVEL 4 Comments: [id number]
== END 2024-03-28 12:05 | disposition home or self-care (01) ==
LOC: LBN 12:04
PROVIDERS: PCP Nurse Practitioner Family; Referring Provider Nurse Practitioner Family; Visit Provider Physician Assistant
DX: D49.2 Neoplasm of unspecified behavior of bone, soft tissue, and skin (principal); L57.0 Actinic keratosis; L98.9 Disorder of the skin and subcutaneous tissue, unspecified
CPT/HCPCS: 88305

== ENCOUNTER 2024-09-02 03:08 | Outpatient (CLI) | payer MEDICARE, SELFPAY ==
[2024-09-02 10:03] LABS: Abs Immature Grans 0.02 10^3/uL (0.0-0.06); Absolute Basophil Count 0.02 10^3/uL (0.0-0.2); Absolute Eosinophil Count 0.05 10^3/uL (0.0-0.7); Absolute Lymphocyte Count 1.66 10^3/uL (1.2-3.4); Absolute Monocyte Count 0.35 10^3/uL (0.1-0.8); Absolute Neutrophil Count 3.24 10^3/uL (1.2-6.7); Basophils % 0.4 %; Eosinophils % 0.9 %; HCT 39.2 % (36.0-46.0); HGB 13.1 g/dL (11.2-15.7); Immature Grans % 0.4 %; Lymphocytes % 31.1 %; MCH 28.4 pg (27.0-33.0); MCHC 33.4 % (32.0-36.0); MCV 85 fL (80-95); MPV 9.6 fL (8.0-11.0); Monocytes % 6.6 %; Neutrophils % 60.6 %; Platelet Count 235 10^3/uL (130-400); RBC 4.61 10^6/uL (3.93-5.22); RDW 12.7 % (11.7-14.6); RDW-SD 39.1 fL; WBC 5.34 10^3/uL (4.4-10.8)
[2024-09-02 10:19] LABS: ALT 21 U/L (14-59); AST 15 U/L (15-37); Albumin 3.8 g/dL (3.4-5.0); Alkaline Phosphatase 96 U/L (46-116); Anion Gap 8.6 mmol/L (3-11); BUN 14 mg/dL (7-18); Bilirubin, Total 0.5 mg/dL (0.2-1.0); CO2 29.4 mmol/L (21.0-32.0); Calcium 9.8 mg/dL (8.5-10.1); Chloride 105 mmol/L (98-107); Estimated GFR 59.86 (mL/min/1.73m2); Glucose 103 mg/dL (74-106); Potassium 3.7 mmol/L (3.5-5.1); Sodium 143 mmol/L (136-145); Total Protein 7.6 g/dL (6.4-8.2)
== END 2024-09-02 03:09 | disposition home or self-care (01) ==
PROVIDERS: PCP Nurse Practitioner Family; Visit Provider Nurse Practitioner
DX: C50.911 Malignant neoplasm of unspecified site of right female breast (principal)
CPT/HCPCS: 36415; 80053; 85025

== ENCOUNTER 2024-11-11 02:33 | Outpatient (CLI) | payer MEDICARE, SELFPAY ==
[2024-11-11 12:33] LABS: Hemoglobin A1C 5.4 % (<5.7)
[2024-11-11 12:42] LABS: Anion Gap 5.4 mmol/L (3-11); BUN 17 mg/dL (7-18); CO2 30.6 mmol/L (21.0-32.0); CREATININE 0.8 mg/dL (0.55-1.02); Calcium 9.4 mg/dL (8.5-10.1); Calculated LDL 152 mg/dL (<100); Chloride 105 mmol/L (98-107); Cholesterol 246 mg/dL (<200); Estimated GFR 78.24 (mL/min/1.73m2); Glucose 95 mg/dL (74-106); HDL Cholesterol 58 mg/dL (>or=50); Potassium 3.6 mmol/L (3.5-5.1); Sodium 141 mmol/L (136-145); Triglyceride 183 mg/dL (<150)
== END 2024-11-11 02:34 | disposition home or self-care (01) ==
LOC: LOS 02:33
PROVIDERS: PCP Nurse Practitioner Family; Visit Provider Nurse Practitioner Family
DX: I10 Essential (primary) hypertension (principal); Z13.1 Encounter for screening for diabetes mellitus; Z13.220 Encounter for screening for lipoid disorders
CPT/HCPCS: 36415; 80048; 80061; 83036

== ENCOUNTER 2024-12-30 02:17 | Outpatient (CLI) | payer MEDICARE, SELFPAY ==
--- NOTE | 2024-12-30 08:00 | DI.US_ITS ---
Exam(s) US PELVIS TRANSVAGINAL EXAM: US PELVIS TRANSVAGINAL CLINICAL HISTORY: check stripe, post menopausal bleeding N95.0 TECHNIQUE: Transabdominal and transvaginal imaging was performed using standard protocol. COMPARISON: No exams were available for comparison FINDINGS: UTERUS: Anteverted. 6.8 x 3.0 x 4.0 cm Endometrium: 3 mm, no visible focal abnormality. No fluid within the endometrial cavity. Myometrium: 7 millimeter anterior fibroid. 1.7 centimeter posterior fibroid Cervix: Unremarkable. OVARIES: Not well visualized. . CUL-DE-SAC: Free fluid: None. IMPRESSION: Two uterine fibroids. The endometrial stripe is unremarkable. The ovaries were not well visualized. DATA REPOSITORY:
== END 2024-12-30 02:37 ==
LOC: DI 02:17
PROVIDERS: PCP Nurse Practitioner Family; Visit Provider Obstetrics & Gynecology
DX: N95.0 Postmenopausal bleeding (principal)
CPT/HCPCS: 76830; 76856

== ENCOUNTER 2025-01-02 00:35 | Outpatient (CLI) | payer MEDICARE, SELFPAY ==
--- NOTE | 2025-01-02 15:02 | DI.RAD_ITS ---
Exam(s) XR LUMBAR SPINE COMPLETE EXAM: XR LUMBAR SPINE COMPLETE CLINICAL HISTORY: left leg pain,radiculopathy.m54.10. TECHNIQUE: 2D digital imaging was performed. Five views. COMPARISON: CR XR DEXA BONE DENSITY W/WO MINAL from 06/28/2023 FINDINGS: BONES: No fracture or destructive lesion. Vertebral body heights are maintained. Facet degenerative changes are present throughout, greatest at L4-5 and L5-S1. DISKS: There is moderate narrowing of the L1-2 and L2-3 disc spaces. The L3-4 disc space is maintained. There is severe narrowing of the L4-5 disc space and mild narrowing of the L5-S1 disc space. ALIGNMENT: Lumbar spinal alignment is within normal limits. SOFT TISSUE: The aorta is calcified and normal in diameter. IMPRESSION: Degenerative changes, greatest at L4-5. DATA REPOSITORY: RADIATION DOSE DELIVERED:
--- NOTE | 2025-01-02 15:02 | DI.RAD_ITS ---
Exam(s) XR HIP LT COMPLETE AP PELVIS EXAM: XR HIP LT COMPLETE AP PELVIS CLINICAL HISTORY: worsening lt hip pain/affected gait,m25.552. TECHNIQUE: 2D digital imaging was performed. Two views. COMPARISON: No exams were available for comparison FINDINGS: BONES: No acute fracture is present. No bony destructive lesion is seen. JOINTS: No dislocation present. The SI joints and pubic symphysis are intact. There is moderate to severe narrowing of the left hip joint space. There is prominent spurring at the acetabulum and mild spurring at the margin of the femoral head. There are subchondral cysts on both sides of the joint. The right hip joint space is maintained in shows mild spurring at the acetabulum. SOFT TISSUE: Pessary noted. IMPRESSION: Advanced degenerative changes of the left hip. DATA REPOSITORY: RADIATION DOSE DELIVERED:
== END 2025-01-02 00:55 ==
LOC: DI 00:35
PROVIDERS: PCP Nurse Practitioner Family; Visit Provider Nurse Practitioner Family
DX: M51.362 Other intervertebral disc degeneration, lumbar region with discogenic back pain and lower extremity pain (principal); M16.0 Bilateral primary osteoarthritis of hip
CPT/HCPCS: 72110; 73502

== ENCOUNTER 2025-01-19 02:33 | Outpatient (CLI) | payer MEDICARE, SELFPAY ==
--- NOTE | 2025-01-19 07:15 | DI.MAMMO_ITS ---
Exam(s) MG MAMMO SCREENING 60 MIN DUR EXAM: MG MAMMO SCREENING 60 MIN DUR CLINICAL HISTORY: breast cancer screening, HX BREAST CANCER, Z85.3. TECHNIQUE: Bilateral full field digital CC and MLO mammographic images were obtained with 3D tomosynthesis and utilizing computer aided detection (CAD). COMPARISON: Prior mammograms were reviewed. Patient has had prior right breast lumpectomy for malignancy. FINDINGS: The right breast lumpectomy site appears stable. No new right breast findings. In the medial aspect of the opposite-left breast there is a E noncalcified well- defined oval nodular density measuring 9 x 7 mm located 7.5 cm in from the nipple on the CC view. This, however, is most probably benign as it is unchanged from multiple prior mammograms. There are no malignant-appearing microcalcification groups in this region or elsewhere in either breast. Benign-appearing lymph node laterally in the left breast is unchanged from 2015. There are no new spiculated masses nor new malignant appearing microcalcification groups. IMPRESSION: 1. Stable appearance of the right breast lumpectomy site. No new right breast findings. 2. Stable asymmetric density in the left breast, unchanged from prior mammograms. BI-RADS Category 2 - Benign Findings Breast Density - Category B - There are scattered areas of fibroglandular density. Breast density Category C or D implies that the patient has dense breast tissue. Dense breast tissue can make it harder to find cancer on a mammogram. Dense breast tissue is also associated with an increased risk of breast cancer. This information about the result of the mammogram report was provided to the patient to raise their awareness. Use this report when you speak with the patient about their risks for breast cancer, which includes their family history. At that time, you may recommend additional screening tests (Ultrasound or MRI) as these tests may add significant information. A negative radiographic report should not delay biopsy if a dominant or clinically suspicious mass is present. Up to ten percent of cancers are not identified on mammography. A negative report may reinforce clinical impression. Adenosis and dense breasts may obscure an underlying neoplasm. False positive reports average 6 to 10%. Patient will receive a letter notifying them of these results.
== END 2025-01-19 02:53 ==
LOC: DI 02:33
PROVIDERS: PCP Nurse Practitioner Family; Visit Provider Nurse Practitioner Family
DX: Z85.3 Personal history of malignant neoplasm of breast (principal); Z12.31 Encounter for screening mammogram for malignant neoplasm of breast; R92.323 Mammographic fibroglandular density, bilateral breasts
CPT/HCPCS: 77063; 77067

== ENCOUNTER 2025-01-19 12:14 | Outpatient (CLI) | payer MEDICARE, SELFPAY ==
[2025-01-19 09:27] LABS: Abs Immature Grans 0.02 10^3/uL (0.0-0.06); HCT 37.2 % (36.0-46.0); HGB 12.3 g/dL (11.2-15.7); Immature Grans % 0.3 %; MCH 27.9 pg (27.0-33.0); MCHC 33.1 % (32.0-36.0); MCV 84 fL (80-95); MPV 9.7 fL (8.0-11.0); Platelet Count 219 10^3/uL (130-400); RBC 4.41 10^6/uL (3.93-5.22); RDW 12.7 % (11.7-14.6); RDW-SD 38.8 fL; WBC 6.69 10^3/uL (4.4-10.8)
[2025-01-19 10:30] LABS: ALT 25 U/L (14-59); AST 14 U/L (15-37); Albumin 3.7 g/dL (3.4-5.0); Alkaline Phosphatase 97 U/L (46-116); Anion Gap 8.9 mmol/L (3-11); BUN 14 mg/dL (7-18); Bilirubin, Total 0.7 mg/dL (0.2-1.0); CO2 30.1 mmol/L (21.0-32.0); Calcium 9.6 mg/dL (8.5-10.1); Chloride 101 mmol/L (98-107); Estimated GFR 67.92 (mL/min/1.73m2); Ferritin 71 ng/mL (8-252); Glucose 90 mg/dL (74-106); Potassium 3.5 mmol/L (3.5-5.1); Sodium 140 mmol/L (136-145); TSH (W/Ref FT4) 1.87 uIU/mL (0.36-3.74); Total Protein 7.3 g/dL (6.4-8.2); Vitamin B12 223 pg/mL (193-986)
[2025-01-19 10:52] LABS: Iron 54 ug/dL (50-170); Total Iron Binding Capacity 298 ug/dL (250-450)
[2025-01-20 10:08] LABS: Transferrin 230 mg/dL (201-352)
== END 2025-01-19 12:15 | disposition home or self-care (01) ==
LOC: LBO 12:14
PROVIDERS: PCP Nurse Practitioner Family; Visit Provider Nurse Practitioner Family
DX: D64.9 Anemia, unspecified (principal)
CPT/HCPCS: 36415; 80053; 82607; 82728; 83540; 83550; 84443; 84466; 85025

== ENCOUNTER 2025-03-10 01:36 | Outpatient (CLI) | payer MEDICARE, SELFPAY ==
[2025-03-10 13:36] LABS: Abs Immature Grans 0.02 10^3/uL (0.0-0.06); HCT 36.0 % (36.0-46.0); HGB 12.0 g/dL (11.2-15.7); Immature Grans % 0.4 %; MCH 28.0 pg (27.0-33.0); MCHC 33.3 % (32.0-36.0); MCV 84 fL (80-95); MPV 9.5 fL (8.0-11.0); Platelet Count 213 10^3/uL (130-400); RBC 4.29 10^6/uL (3.93-5.22); RDW 13.0 % (11.7-14.6); RDW-SD 39.8 fL; WBC 5.64 10^3/uL (4.4-10.8)
[2025-03-10 14:10] LABS: ALT 24 U/L (14-59); AST 14 U/L (15-37); Albumin 3.7 g/dL (3.4-5.0); Alkaline Phosphatase 85 U/L (46-116); Anion Gap 10.0 mmol/L (3-11); BUN 16 mg/dL (7-18); Bilirubin, Total 0.4 mg/dL (0.2-1.0); CO2 30.0 mmol/L (21.0-32.0); Calcium 9.8 mg/dL (8.5-10.1); Chloride 104 mmol/L (98-107); Estimated GFR 67.92 (mL/min/1.73m2); Glucose 103 mg/dL (74-106); Potassium 3.5 mmol/L (3.5-5.1); Sodium 144 mmol/L (136-145); Total Protein 7.2 g/dL (6.4-8.2)
== END 2025-03-10 01:37 | disposition home or self-care (01) ==
LOC: LBO 03-11 01:36
PROVIDERS: PCP Nurse Practitioner Family; Visit Provider Nurse Practitioner
DX: C50.919 Malignant neoplasm of unspecified site of unspecified female breast (principal); C50.911 Malignant neoplasm of unspecified site of right female breast; R23.2 Flushing
CPT/HCPCS: 36415; 80053; 85025

== ENCOUNTER → 2025-04-09 12:55 | Outpatient (BNVA) | payer MEDICARE, SELFPAY | PROVIDERS: PCP Nurse Practitioner Family; Referring Provider Nurse Practitioner Family; Visit Provider Student in an Organized Health Care Education/Training Program | DX: M16.12 Unilateral primary osteoarthritis, left hip (principal) | CPT/HCPCS: 99214 ==

== ENCOUNTER 2025-05-29 09:49 | Outpatient (CLI) | payer MEDICARE, SELFPAY ==
[2025-05-29 10:21] LABS: HCT 36.5 % (36.0-46.0); HGB 12.4 g/dL (11.2-15.7); MCH 28.7 pg (27.0-33.0); MCHC 34.0 % (32.0-36.0); MCV 85 fL (80-95); MPV 9.7 fL (8.0-11.0); Platelet Count 256 10^3/uL (130-400); RBC 4.32 10^6/uL (3.93-5.22); RDW 12.6 % (11.7-14.6); RDW-SD 38.2 fL; WBC 6.84 10^3/uL (4.4-10.8)
[2025-05-29 11:09] LABS: Anion Gap 9.7 mmol/L (3-11); BUN 18 mg/dL (9-23); CO2 29.3 mmol/L (20.0-31.0); Calcium 9.6 mg/dL (8.3-10.6); Chloride 104 mmol/L (98-107); Glucose 90 mg/dL (74-106); Potassium 3.6 mmol/L (3.5-5.1); Sodium 143 mmol/L (136-145)
== END 2025-05-29 09:50 | disposition home or self-care (01) ==
LOC: LBO 09:50
PROVIDERS: PCP Nurse Practitioner Family; Visit Provider Student in an Organized Health Care Education/Training Program
DX: M16.12 Unilateral primary osteoarthritis, left hip (principal); Z01.818 Encounter for other preprocedural examination
CPT/HCPCS: 36415; 80048; 85027